=== PATIENT | male | born 1965 | race Caucasian/White ===

== ENCOUNTER 2018-06-12 08:42 | Inpatient (IN) | payer SELFPAY ==
[2018-06-12] MEDS ORDERED: FUROSEMIDE 40 MG/4 ML VIAL ONE (09:02)
[2018-06-12] MEDS ORDERED: ALBUTEROL 2.5 MG/3 ML NEB SOL ONE (09:02)
[2018-06-12] MEDS ORDERED: IPRATROPIUM BROM 0.5MG/2.5ML ONE (09:02)
[2018-06-12 09:19] LABS: Absolute Lymphocytes (CBC) 1.8 K/uL (0.7-4.9); Absolute Neutrophil 7.9 K/uL (1.8-8.0); Basophils % 0.8 % (0-1.3); Eosinophils % 4.3 % (0-4.4); Hematocrit 31.4 % (39.6-49.0); MCH 36.4 pg (27.0-35.0); MCV 104.3 fL (80-100); MPV 7.9 fL (7.6-11.3); RBC Red Blood Cell Count 3.01 M/uL (4.33-5.43)
[2018-06-12 09:36] LABS: Protime INR 1.34
[2018-06-12 09:42] LABS: Bilirubin Direct 0.9 mg/dL (0-0.2); Bilirubin Total 1.5 mg/dL (0.2-1.0); Potassium 3.8 mmol/L (3.5-5.1); Protein, Total 8.2 g/dL (6.4-8.2)
--- NOTE | 2018-06-12 10:20 | RAD REPORT ---
EXAM DESCRIPTION: RAD - Chest Single View - 06/12/2018 9:56 am CLINICAL HISTORY: CONGESTION Chest pain. COMPARISON: No comparisons FINDINGS: Portable technique limits examination quality. Linear subsegmental atelectasis is likely present in both lung bases. Small pleural effusions are kenisha pected. The heart is upper limit normal in size. No displaced fractures.
[2018-06-12 10:43] LABS: Urine Blood 1+ (NEG); Urine Glucose NEGATIVE (NEG); Urine Protein NEGATIVE (NEG); Urine Specific Gravity 1.015 (1.005-1.030); Urine pH 5.5 (5.0-7.0)
--- NOTE | 2018-06-12 11:33 | EDPHYS ---
Physician Documentation [facility] Name: Pepe Anthony Age: 53 yrs Sex: Male : 1965 Arrival Date: 06/12/2018 Time: 08:43 Bed 6 Private MD: ED Physician Ryan Vargas HPI: 06/12 12:45 This 53 yrs old Male presents to ER via EMS with complaints of Abdominal gs Distention. 12:45 Onset: The symptoms/episode began/occurred 1 month(s) ago, and became worse and became gs persistent. Associated signs and symptoms: Pertinent negatives: nausea and vomiting, fever. The symptoms are described as crampy. Modifying factors: The symptoms are alleviated by nothing, the symptoms are aggravated by nothing. Severity of pain: At its worst the pain was moderate in the emergency department the pain is unchanged. The patient has experienced similar episodes in the past, several times. 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 - Ebola Screening: : No symptoms or risks identified at this time. - Social history:: Smoking status: Patient uses tobacco products, denies chronic smoking, but will smoke occasionally. ROS: 12:45 All other systems are negative. gs Exam: 12:45 Head/Face: Normocephalic, atraumatic. ENT: Nares patent. No nasal discharge, no gs septal abnormalities noted. Tympanic membranes are normal and external auditory canals are clear. Oropharynx with no redness, swelling, or masses, exudates, or evidence of obstruction, uvula midline. Mucous membranes moist. Neck: Trachea midline, no thyromegaly or masses palpated, and no cervical lymphadenopathy. Supple, full range of motion without nuchal rigidity, or vertebral point tenderness. No Meningismus. Chest/axilla: Normal chest wall appearance and motion. Nontender with no deformity. No lesions are appreciated. 12:45 Respiratory: Lungs have equal breath sounds bilaterally, clear to auscultation and percussion. No rales, rhonchi or wheezes noted. No increased work of breathing, no retractions or nasal flaring. Back: No spinal tenderness. No costovertebral tenderness. Full range of motion. Skin: Warm, dry with normal turgor. Normal color with no rashes, no lesions, and no evidence of cellulitis. MS/ Extremity: Pulses equal, no cyanosis. Neurovascular intact. Full, normal range of motion. Neuro: Awake and alert, GCS 15, oriented to person, place, time, and situation. Cranial nerves II-XII grossly intact. Motor strength 5/5 in all extremities. Sensory grossly intact. Cerebellar exam normal. Normal gait. 12:45 Constitutional: The patient appears alert, awake, in obvious distress, severely distressed. 12:45 Eyes: Sclera: icterus, is present, very mild. 12:45 Abdomen/GI: Inspection: distension, that is severe, Palpation: mild abdominal tenderness, in all quadrants, rebound tenderness, is not appreciated. 13:01 ECG was reviewed by the Attending Physician. Vital Signs: 08:47 BP 176 / 97; Pulse 122; Resp 24; Temp 99.3(TE); Pulse Ox 93% on R/A; ph 10:00 BP 174 / 100; Pulse 121; Resp 25; Pulse Ox 96% on R/A; ss 11:00 ph 12:29 BP 142 / 87; Pulse 107; Resp 18; Pulse Ox 98% on R/A; ph 13:30 BP 129 / 78; Pulse 108; Resp 20; Temp 98.7; Pulse Ox 97% on R/A; ph 11:00 Pt not in room, taken for paracentesis ph MDM: 08:43 Patient medically screened. gs 12:45 Differential diagnosis: non-specific abd pain, pancreatitis, urinary tract infection, gs cirrhosis. Data reviewed: vital signs, nurses notes. Response to treatment: the patient's symptoms have markedly improved after treatment, and as a result, I will admit patient. 06/12 08:45 Order name: Basic Metabolic Panel; Complete Time: 10: 06/12 08:45 Order name: CBC with Diff; Complete Time: 10: 06/12 08:45 Order name: Hepatic Function; Complete Time: 10: 06/12 08:45 Order name: Lipase; Complete Time: 10: 06/12 08:45 Order name: AMMONIA; Complete Time: 12:49 06/12 08:59 Order name: PT-INR; Complete Time: 10: 06/12 08:59 Order name: Ptt, Activated; Complete Time: 10:06 06/12 09:00 Order name: Blood Culture Adult (2) 06/12 09:00 Order name: Lactate; Complete Time: 10:06 06/12 09:36 Order name: Body Fluid Culture 06/12 09:36 Order name: Fluid Cell Count,Body 06/12 09:43 Order name: Urine Dipstick--Ancillary (enter results); Complete Time: 11:06 06/12 12:50 Order name: Urine Culture 06/12 12:50 Order name: Urine Microscopic Only 06/12 08:45 Order name: IV Saline Lock; Complete Time: 09:01 06/12 08:45 Order name: Labs collected and sent; Complete Time: 09: 06/12 08:45 Order name: XRAY CXR (1 view); Complete Time: 11:06 06/12 08:49 Order name: Paracentesis Proc Guidance; Complete Time: 12:49 EDMS 06/12 09:00 Order name: EKG; Complete Time: 09:01 06/12 09:00 Order name: EKG - Nurse/Tech; Complete Time: 09:30 06/12 11:08 Order name: Abdomen ; Complete Time: 12:49 EDMS 06/12 13:46 Order name: Urine Culture EDMS EC:01 Rate is 118 beats/min. Rhythm is regular. UT interval is normal. QRS interval is gs normal. T waves are Flattened. Clinical impression: NSR w/ Non-specific ST/T Changes. Interpreted by me. Administered Medications: 09:30 Drug: Albuterol 2.5 mg Route: Inhalation; ph 09:30 Drug: AtroVENT Aerosol 0.5 mg Route: Inhalation; ph 09:30 Drug: Lasix 40 mg Route: IVP; Site: right antecubital; ph 12:51 Drug: Rocephin - (cefTRIAXone) 1 grams Route: IVPB; Infused Over: 30 mins; Site: right ph antecubital; Disposition: 06/12/18 11:32 Hospitalization ordered by Beena De La Torre for Inpatient Admission. Preliminary diagnosis are Other sepsis, Other cirrhosis of liver. - Bed requested for Telemetry/MedSurg (Inpatient). - Status is Inpatient Admission. ph - Condition is Stable. - Problem is new. - Symptoms have improved. UTI on Admission? Yes Critical care time excluding procedures: 12:45 Critical care time: Bedside Care: 10 minutes, Consultation: 10 minutes, Family gs Intervention: 10 minutes. Total time: 30 minutes Signatures: Dispatcher [employer] EDSocorro Parmar RN RN Lety Crowley RN RN Vargas, MD DEVENDRA Davis Corrections: (The following items were deleted from the chart) 11:33 11:32 Hospitalization Ordered by Beena De La Torre MD for Inpatient Admission. Preliminary diagnosis is Other sepsis. Bed requested for Telemetry/MedSurg (Inpatient). Status is Inpatient Admission. Condition is Stable. Problem is new. Symptoms have improved. UTI on Admission? Yes. 12:22 11:33 06/12/2018 11:32 Hospitalization Ordered by Beena De La Torre MD for Inpatient ss Admission. Preliminary diagnosis is Other sepsis; Other cirrhosis of liver. Bed requested for Telemetry/MedSurg (Inpatient). Status is Inpatient Admission. Condition is Stable. Problem is new. Symptoms have improved. UTI on Admission? Yes. 14:01 12:22 06/12/2018 11:32 Hospitalization Ordered by Beena De La Torre MD for Inpatient ph Admission. Preliminary diagnosis is Other sepsis; Other cirrhosis of liver. Bed requested for Telemetry/MedSurg (Inpatient). Status is Inpatient Admission. Condition is Stable. Problem is new. Symptoms have improved. UTI on Admission? Yes.
--- NOTE | 2018-06-12 11:33 | ER ---
Nurse's Notes [facility] Name: Pepe Anthony Age: 53 yrs Sex: Male : 1965 Arrival Date: 06/12/2018 Time: 08:43 Bed 6 Private MD: Diagnosis: Other sepsis;Other cirrhosis of liver Presentation: 06/12 08:44 Presenting complaint: EMS states: Pt c/o abdominal pain and distention x 6 months, also ph c/o fluid seeping from testicular area, britney wheezes heard, BP 174/112, HR 123, 95% RA, pt reports blindness is only medical hx, reports previous ETOH and drug abuse. Transition of care: patient was not received from another setting of care. Onset of symptoms was June 12, 2018. Risk Assessment: Do you want to hurt yourself or someone else? Patient reports no desire to harm self or others. Initial Sepsis Screen: Does the patient meet any 2 criteria? No. Patient's initial sepsis screen is negative. Does the patient have a suspected source of infection? No. Patient's initial sepsis screen is negative. Care prior to arrival: None. 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 - Ebola Screening: : No symptoms or risks identified at this time. - Social history:: Smoking status: Patient uses tobacco products, denies chronic smoking, but will smoke occasionally. Screenin:02 Abuse screen: Denies threats or abuse. Denies injuries from another. Nutritional ph screening: No deficits noted. Tuberculosis screening: No symptoms or risk factors identified. Fall Risk None identified. Assessment: 09:00 General: Appears in no apparent distress. uncomfortable, unkempt, Behavior is calm, ph cooperative, appropriate for age, Denies fever. Pain: Complains of pain in abdomen Quality of pain is described as pressure. Neuro: Level of Consciousness is awake, alert, obeys commands, Oriented to person, place, time, situation, Denies weakness dizziness. Cardiovascular: Reports fatigue, shortness of breath, Denies chest pain, Capillary refill < 3 seconds in bilateral fingers Patient's skin is warm and dry. Rhythm is sinus tachycardia. Respiratory: Reports shortness of breath at rest Airway is patent Respiratory effort is even, labored, Respiratory pattern is hyperventilation Breath sounds with wheezes bilaterally. GI: Abdomen is distended, noted to have ascites, Bowel sounds diminished in right upper quadrant, left upper quadrant, right lower quadrant and left lower quadrant Abd is rigid X 4 quads. Reports lower abdominal pain, upper abdominal pain, bloating, nausea, Patient currently denies diarrhea, vomiting. : Reports "fluid leaking from testicles." Denies burning with urination, inability to void. Derm: Skin has lesions on britney arms Skin is pink, warm \\T\\ dry. Musculoskeletal: Circulation, motion, and sensation intact. 10:25 Reassessment: Patient appears in no apparent distress at this time. Patient and/or ph family updated on plan of care and expected duration. Pain level reassessed. Patient is alert, oriented x 3, equal unlabored respirations, skin warm/dry/pink. Pt taken via stretcher for paracentesis. 11:25 Reassessment: Patient appears in no apparent distress at this time. Patient and/or ph family updated on plan of care and expected duration. Pain level reassessed. Patient is alert, oriented x 3, equal unlabored respirations, skin warm/dry/pink. PT returned from paracentesis, tech reported that approx 11 liters of fluid was removed, abdomen flatter in appearance w/ no distention noted, abdomen now soft w/ bowel sounds heard x 4 quadrants, pt reports that pain has decreased and SOB has improved. 12:30 Reassessment: Patient appears in no apparent distress at this time. Patient and/or ph family updated on plan of care and expected duration. Pain level reassessed. Patient is alert, oriented x 3, equal unlabored respirations, skin warm/dry/pink. Pt resting quietly, awaiting room assignment Patient states feeling better. Patient states symptoms have improved. 13:40 Reassessment: Patient appears in no apparent distress at this time. Patient and/or ph family updated on plan of care and expected duration. Pain level reassessed. Patient is alert, oriented x 3, equal unlabored respirations, skin warm/dry/pink. Report called to Radha LEOS. Vital Signs: 08:47 BP 176 / 97; Pulse 122; Resp 24; Temp 99.3(TE); Pulse Ox 93% on R/A; ph 10:00 BP 174 / 100; Pulse 121; Resp 25; Pulse Ox 96% on R/A; ss 11:00 ph 12:29 BP 142 / 87; Pulse 107; Resp 18; Pulse Ox 98% on R/A; ph 13:30 BP 129 / 78; Pulse 108; Resp 20; Temp 98.7; Pulse Ox 97% on R/A; ph 11:00 Pt not in room, taken for paracentesis ph ED Course: 08:43 Patient arrived in ED. ph 08:43 Ryan Vargas MD is Attending Physician. gs 08:47 Triage completed. ph 08:49 Arm band placed on. ph 08:52 Lety Crowley, RN is Primary Nurse. ph 09:01 Initial lab(s) drawn, by ny, sent to lab. Inserted saline lock: 20 gauge in left em1 antecubital area, using aseptic technique. Blood collected. 09:32 EKG done, by certified cytotechnologist. reviewed by Ryan Vargas MD. at1 09:45 X-ray completed. Portable x-ray completed in exam room. Patient tolerated procedure mh1 well. 09:52 XRAY CXR (1 view) In Process Unspecified. EDMS 10:42 Paracentesis Proc Guidance In Process Unspecified. EDMS 11:03 Patient has correct armband on for positive identification. Placed in gown. Bed in low ph position. Call light in reach. Side rails up X 1. monitoring engineer on. Pulse ox on. NIBP on. Warm blanket given. 11:31 Abdomen In Process Unspecified. EDMS 11:31 Beena De La Torre MD is Hospitalizing Provider. gs 13:54 No provider procedures requiring assistance completed. Patient admitted, IV remains in ph place. Administered Medications: 09:30 Drug: Albuterol 2.5 mg Route: Inhalation; ph 09:30 Drug: AtroVENT Aerosol 0.5 mg Route: Inhalation; ph 09:30 Drug: Lasix 40 mg Route: IVP; Site: right antecubital; ph 12:51 Drug: Rocephin - (cefTRIAXone) 1 grams Route: IVPB; Infused Over: 30 mins; Site: right ph antecubital; Outcome: 11:32 Decision to Hospitalize by Provider. gs 14:00 Admitted to Tele accompanied by tech, via wheelchair, room 224, with chart, Report ph called to Radha LEOS 14:00 Condition: stable 14:00 Instructed on the need for admit. 14:01 Patient left the ED. ph Signatures: Dispatcher [employer] EDMS Brenda Bustos mh1 Sourav Jesus em1 Socorro Gómez RN RN Elma Fernandez, residential framing carpenter EKG Tat1 Lety Crowley RN RN Ryan Vargas MD MD Corrections: (The following items were deleted from the chart) 14:18 12:29 Pulse 107bpm; Resp 18bpm; Pulse Ox 98% RA; ph ph 14:18 12:41 BP 129 / 78; Pulse 108bpm; Resp 20bpm; Pulse Ox 97% RA; Temp 98.7F; ph ph
[2018-06-12] MEDS: PIPER/TAZO/NS 3.375gm 3.375 GM/100 ML BAG IVPB SCH ×2 (12:00→17:00)
--- NOTE | 2018-06-12 12:02 | RAD REPORT ---
EXAM DESCRIPTION: CT - Abdomen Pelvis Wo Contrast - 06/12/2018 11:30 am CLINICAL HISTORY: Abdominal pain. Abdominal Pain COMPARISON: No comparisons TECHNIQUE: CT imaging of the abdomen and pelvis was performed without contrast. Solid organ, bowel a nd vascular assessment is limited due to lack of IV and oral contrast. All CT scans are performed using dose optimization technique as appropriate and may include automated exposure control or mA/KV adjustment according to patient size. FINDINGS: Moderate bilateral pleural effusions are present with subsegmental atelectasis in both oly g bases. Mild ascites is noted. The liver appears prominent in size. Small gallstones are present in the gallb ladder. The spleen is normal in size. Pancreas demonstrates no ductal dilatation or mass. Both adrena l glands are normal.Stones are present in kidneys bilaterally, in the superior left kidney calyx alina uring 9 mm with a small adjacent air bubble seen. In the inferior left renal calyx measuring 7 mm and in the superior right renal calyx measuring 8 mm. No significant hydronephrosis. No bowel obstruction, free air or abscess. The majority of the colon demonstrates mural thickening, p articularly notable in the right colon. The appendix is normal. The osseous structures are within normal limits.Mild anasarca. IMPRESSION: Fluid retention pattern is seen with mild anasarca, moderate bilateral pleural effusions and mild ascites. Hepatomegaly is seen without discrete mass identified. Liver assessment is limited due to lack of con trast. Cholelithiasis. Bilateral nephrolithiasis. Colonic wall thickening is present as detailed which could indicate colitis for portal colopathy. A limited non-contrast examination was performed as detailed.
[2018-06-12] MEDS ORDERED: CEFTRIAXONE/SWI 1gm 1 GM/10 ML SYR ONE (12:08)
--- NOTE | 2018-06-12 12:45 | RAD REPORT ---
EXAM DESCRIPTION: US - Paracentesis Proc Guidance - 06/12/2018 10:48 am CLINICAL HISTORY: Liver disease with ascites FINDINGS: The risks, benefits and alternatives to the procedure were explained to the patient and in formed consent obtained. The skin and subcutaneous tissues were anesthetized with Lidocaine. Under sonographic guidance an 8 F rench catheter was placed into the right lower quadrant. 11 liters of yellow fluid was removed and se nt to the lab. The patient experienced no immediate complication. IMPRESSION: Paracentesis
[2018-06-12 13:27] LABS: Appearance CLEAR (CLEAR); Body Fluid Source PERITONEAL; Color of fluid Yellow (COLORLESS)
[2018-06-12 13:28] LABS: Body Fluid WBC 474 /mm^3
[2018-06-12] MEDS ORDERED: ONDANSETRON 4 MG/2 ML VIAL IV PRN (13:46)
[2018-06-12 14:44] LABS: Urine Blood 2+ (NEG); Urine Glucose NEGATIVE (NEG); Urine Protein NEGATIVE (NEG); Urine Specific Gravity 1.015 (1.005-1.030); Urine pH 5.5 (5.0-7.0)
--- NOTE | 2018-06-12 15:14 | P.HP ---
Certification for Inpatient Patient admitted to: Inpatient With expected LOS: >2 Midnights Patient will require the following post-hospital care: None Practitioner: I am a practitioner with admitting privileges, knowledge of patient current condition, hospital course, and medical plan of care. Services: Services provided to patient in accordance with Admission requirements found in Title 42 Section 412.3 of the Code of Federal Regulations Patient History Date of Service: 06/12/18 Primary Care Provider: OOT Reason for admission: SOB History of Present Illness: 53 y/o M with No significatn PMHX who is homeless presenting to the ED with SOB. SOB has been going on for 1 to 2 weeks but has been getting progressively worse. Pt states he has also noted scrotal Swelling that is getting worse and thus he came to the ER for further w.u, He also c/p of abd pain that is generalized and sharp in nature. Denies any fever, chills, N/V or diarrhea. No Chest pain either. Has not had any Doctor and states does not take any medication. He does drink and quit 10 days ago. He is also a smoker and smokes a pack a day. In the ER patient was found to have Ascites and Liver Cirrhosis. Pt had Paracentesis done and then referred for admission for further care. Allergies No Known Allergies Allergy (Verified 06/12/18 13:38) Home medications list reviewed: Yes Home Medications: NK [No Home Meds] 06/12/18 - Past Medical/Surgical History Has patient received pneumonia vaccine in the past: No Diabetic: No -: Liver Cirrhosis -: Alcoholic Cirrhpsis -: Ascites Past Surgical History: Reviewed- Non-Contributory - Family History Family History: Reviewed- Non-Contributory - Social History Smoking Status: Current every day smoker Counseled patient to stop smoking for: more than 10 minutes Smoking therapy provided: Yes Patient receptive to therapy: No Alcohol use: Yes CD- Drugs: No Caffeine use: No Place of Residence: Homeless Review of Systems 10-point ROS is otherwise unremarkable Physical Examination - Vital Signs Temperature: 98.7 F Blood Pressure: 129/78 Pulse: 108 Respirations: 20 - Physical Exam General: Alert, In no apparent distress HEENT: Atraumatic, PERRLA, Mucous membr. moist/pink, EOMI, Sclerae nonicteric Neck: Supple, 2+ carotid pulse no bruit, No LAD, Without JVD or thyroid abnormality Respiratory: Clear to auscultation bilaterally, Normal air movement Cardiovascular: Regular rate/rhythm, Normal S1 S2 Gastrointestinal: Normal bowel sounds, Ascites, Tenderness Musculoskeletal: No tenderness Integumentary: No rashes Neurological: Normal gait, Normal speech, Normal strength at 5/5 x4 extr, Normal tone, Normal affect Lymphatics: No axilla or inguinal lymphadenopathy - Studies Laboratory Data (last 24 hrs) 06/12/18 09:15: PT 15.8 H, INR 1.34, APTT 33.6 06/12/18 08:55: WBC 11.3 H, Hgb 11.0 L, Hct 31.4 L, Plt Count 194 06/12/18 08:55: Sodium 134 L, Potassium 3.8, BUN 15, Creatinine 1.30, Glucose 164 H, Total Bilirubin 1.5 H, AST 45 H, ALT 26, Alkaline Phosphatase 117, Lipase 402 H Assessment and Plan - Plan Assessment and Plan: 1. Acute Respiratory distress -2.2 to Ascites -S.p tap with 11L removed -Now resolved 2. Ascites -S/p Removal 11L -Culture Sent 3. Liver Cirrhosis -2.2 to alcohol 4. Alcohol abuse -Quit 10 days ago -PRN Alcohol WD meds 5. Ansarca -2.2 to Liver Cirrhosis 6. Plueral Effusion Small -Will monitor closely 7. Possible UTI -IV zosyn Dispo: Admit to Med surg for further workup and care Discharge Plan: Home Plan to discharge in: 48 Hours - Advance Directives Does patient have a Living Will: No Does patient have a Durable POA for Healthcare: No - Code Status/Comfort Care Code Status Assessed: Yes Critical Care: No
[2018-06-12] MEDS: ALBUTEROL 2.5 MG/3 ML NEB SOL NEB SCH (20:25)
[2018-06-12] MEDS: IPRATROPIUM BROM 0.5MG/2.5ML NEB SCH (20:25)
[2018-06-13] MEDS: PIPER/TAZO/NS 3.375gm 3.375 GM/100 ML BAG IVPB SCH ×2 (00:38→09:57)
[2018-06-13] MEDS: IPRATROPIUM BROM 0.5MG/2.5ML NEB SCH ×4 (01:09→20:05)
[2018-06-13] MEDS: ALBUTEROL 2.5 MG/3 ML NEB SOL NEB SCH ×2 (01:09→08:00)
[2018-06-13 05:21] LABS: Absolute Lymphocytes (CBC) 1.8 K/uL (0.7-4.9); Absolute Monocytes 1.1 K/uL (0.1-1.3); Absolute Neutrophil 8.3 K/uL (1.8-8.0); Basophils % 0.7 % (0-1.3); Eosinophils % 2.6 % (0-4.4); Hematocrit 31.2 % (39.6-49.0); Lymphocytes % 15.7 % (15.3-44.8); MCH 36.5 pg (27.0-35.0); MCV 103.9 fL (80-100); MPV 7.9 fL (7.6-11.3); Monocytes % 9.3 % (3.3-12.3)
[2018-06-13 05:25] LABS: Protime INR 1.4
[2018-06-13 05:43] LABS: Albumin 1.7 g/dL (3.4-5.0); Bilirubin Total 1.5 mg/dL (0.2-1.0); Potassium 3.4 mmol/L (3.5-5.1); Protein, Total 6.7 g/dL (6.4-8.2)
[2018-06-13] MEDS ORDERED: POTASSIUM 25 MEQ EFFERV TAB PO ONE (06:19)
--- NOTE | 2018-06-13 11:00 | EKG ---
Test Date: 2018-06-12 Test Time: 09:10:03 Trauma Coordinator: DAMARIS MEASUREMENT RESULTS: Intervals: Rate: 118 KS: 138 QRSD: 64 QT: 320 QTc: 448 [place]: P: 52 KS: 138 QRS: 34 T: 47 INTERPRETIVE STATEMENTS: Sinus tachycardia Otherwise normal ECG No previous ECG available for comparison Electronically Signed On 06-13-18 10:56:03 CDT by Tejinder Prakash
--- NOTE | 2018-06-13 11:45 | P.PN ---
Subjective Date of Service: 06/13/18 Primary Care Provider: YAW Chief Complaint: Hepatic cirrhosis Subjective: Improving (Patient is doing well no new complaints status post large volume paracentesis he has had abdominal swelling for a month lower extremity edema for 2 weeks no other complaints) Review of Systems General: Weakness Cardiovascular: Edema Gastrointestinal: Nausea, Distention Physical Examination - Vital Signs Temperature: 97.9 F Blood Pressure: 114/64 Pulse: 111 Respirations: 20 Pulse Ox (%): 95 - Physical Exam General: Alert, Oriented x3 Respiratory: Clear to auscultation bilaterally Cardiovascular: Normal S1 S2, Edema (3+ edema) Gastrointestinal: Normal bowel sounds, Distended, Ascites Assessment & Plan - Problems (Diagnosis) (1) Cirrhosis of liver Current Visit: Yes Status: Acute Plan: Patient is 53 years of age admitted with cirrhosis of the liver then alcoholic liver function is mildly abnormal he also has significant scrotal edema patient is homeless start on spironolactone thiamine hemodynamically stable Dc antibiotics possible discharge tomorrow Qualifiers: Hepatic cirrhosis type: alcoholic cirrhosis
[2018-06-13] MEDS ORDERED: ALBUTEROL 2.5 MG/3 ML NEB SOL NEB PRN (11:46)
[2018-06-13] MEDS: SPIRONOLACTONE 25 MG TABLET PO SCH ×2 (12:44→20:09)
[2018-06-13] MEDS: THIAMINE HCL 100 MG TABLET PO SCH (12:44)
[2018-06-13] MEDS: TRAMADOL HCL 50 MG TAB PO PRN (12:45)
[2018-06-14] MEDS: TRAMADOL HCL 50 MG TAB PO PRN ×2 (01:34→08:59)
[2018-06-14] MEDS: IPRATROPIUM BROM 0.5MG/2.5ML NEB SCH ×2 (01:51→08:04)
[2018-06-14 05:53] LABS: Absolute Lymphocytes (CBC) 2.6 K/uL (0.7-4.9); Absolute Monocytes 1.1 K/uL (0.1-1.3); Absolute Neutrophil 7.3 K/uL (1.8-8.0); Basophils % 0.9 % (0-1.3); Eosinophils % 5.2 % (0-4.4); Lymphocytes % 22.4 % (15.3-44.8); MCH 36.1 pg (27.0-35.0); MPV 7.8 fL (7.6-11.3); Monocytes % 9.4 % (3.3-12.3); RBC Red Blood Cell Count 3.18 M/uL (4.33-5.43)
[2018-06-14 05:57] LABS: Protime INR 1.38
[2018-06-14 06:04] LABS: Albumin 1.7 g/dL (3.4-5.0); Phosphorus 3.6 mg/dL (2.5-4.9); Potassium 4.2 mmol/L (3.5-5.1); Protein, Total 6.9 g/dL (6.4-8.2)
[2018-06-14] MEDS: SPIRONOLACTONE 25 MG TABLET PO SCH (08:58)
[2018-06-14] MEDS: THIAMINE HCL 100 MG TABLET PO SCH (08:58)
[2018-06-14] MEDS ORDERED: FUROSEMIDE 20 MG TABLET PO SCH (09:00)
--- NOTE | 2018-06-14 10:54 | P.DS ---
Admission Date: 06/12/18 Discharge Date: 06/14/18 Primary Care Provider: YAW Disposition: ROUTINE DISCHARGE Discharge Condition: FAIR Reason for Admission: Hepatic cirrhosis - Problems (1) Cirrhosis of liver Current Visit: Yes Status: Acute Qualifiers: Hepatic cirrhosis type: alcoholic cirrhosis Ascites presence: with ascites Qualified Code(s): K70.31 - Alcoholic cirrhosis of liver with ascites Brief History of Present Illness: PATIENT IS 53 YEARS OF AGE ADMITTED WITH ABDOMINAL DISTENSION AND LOWER EXTREMITY EDEMA Hospital Course: He was admitted to the hospital and and underwent a paracentesis at the time of discharge ambulating eating well the on spironolactone he quit drinking 14 days ago sats satisfactory statin was a little elevated Mr isolated from the urine was treated with doxycycline at the time of discharge alert oriented responsive cooperative vital signs all stable planing of abdominal distension and even had declined Vital Signs/Physical Exam: Temp Pulse Resp BP Pulse Ox 97.7 F 109 H 20 144/91 H 96 06/14/18 08:00 06/14/18 08:00 06/14/18 08:00 06/14/18 08:00 06/14/18 08:00 Laboratory Data at Discharge: WBC 11.7 K/uL (4.3-10.9) H 06/14/18 05:27 Hgb 11.5 g/dL (13.6-17.9) L 06/14/18 05:27 Hct 33.0 % (39.6-49.0) L 06/14/18 05:27 Plt Count 196 K/uL (152-406) 06/14/18 05:27 PT 16.3 SECONDS (9.5-12.5) H 06/14/18 05:27 INR 1.38 06/14/18 05:27 APTT 33.1 SECONDS (24.3-36.9) 06/14/18 05:27 Sodium 136 mmol/L (136-145) 06/14/18 05:27 Potassium 4.2 mmol/L (3.5-5.1) 06/14/18 05:27 BUN 16 mg/dL (7-18) 06/14/18 05:27 Creatinine 1.40 mg/dL (0.55-1.3) H 06/14/18 05:27 Glucose 119 mg/dL (74-106) H 06/14/18 05:27 Phosphorus 3.6 mg/dL (2.5-4.9) 06/14/18 05:27 Magnesium 2.0 mg/dL (1.8-2.4) 06/14/18 05:27 Total Bilirubin 2.0 mg/dL (0.2-1.0) H 06/14/18 05:27 AST 35 U/L (15-37) 06/14/18 05:27 ALT 22 U/L (12-78) 06/14/18 05:27 Alkaline Phosphatase 70 U/L (45-117) 06/14/18 05:27 Lipase 402 U/L (73-393) H 06/12/18 08:55 Home Medications: Doxycycline Hyclate 100 mg PO BID #14 capsule 06/14/18 Furosemide [Lasix] 20 mg PO DAILY #30 tablet 06/14/18 Spironolact/Hydrochlorothiazid [Spironolactone-Hctz 25-25 Tab] 1 each PO DAILY # 30 tablet 06/14/18 Thiamine HCl [Vitamin B-1*] 100 mg PO DAILY #30 tablet 06/14/18 New Medications: Doxycycline Hyclate 100 mg PO BID #14 capsule Furosemide [Lasix] 20 mg PO DAILY #30 tablet Spironolact/Hydrochlorothiazid [Spironolactone-Hctz 25-25 Tab] 1 each PO DAILY # 30 tablet Thiamine HCl [Vitamin B-1*] 100 mg PO DAILY #30 tablet Diet: Low sodium Activity: Ad rajni Followup: Faizan Elizondo MD [ACTIVE - CAN ADMIT] -
--- NOTE | 2018-06-15 08:11 | EKG ---
Test Date: 2018-06-14 Test Time: 03:51:22 Copy Technician: RT Solis MEASUREMENT RESULTS: Intervals: Rate: 105 CO: 132 QRSD: 68 QT: 358 QTc: 473 [place]: P: CO: 132 QRS: 48 T: 53 INTERPRETIVE STATEMENTS: Sinus tachycardia Cannot rule out Anterior infarct, age undetermined Abnormal ECG Compared to ECG 06/12/2018 09:10:03 Myocardial infarct finding now present Electronically Signed On 06-15-18 08:10:43 CDT by Yousuf Sosa
== END 2018-06-14 15:32 | disposition home or self-care (01) | DRG 433 ==
LOC: ER 08:42 → ERHOLD 11:38 → 2ND 13:48
PROVIDERS: ADMIT Family Medicine; ATTEND Family Medicine
PROC: 0W9G3ZX Drainage of Peritoneal Cavity, Percutaneous Approach, Diagnostic (ICD-10-PCS; principal; 2018-06-12)
DX: K70.31 Alcoholic cirrhosis of liver with ascites (principal); J90 Pleural effusion, not elsewhere classified; N39.0 Urinary tract infection, site not specified; R06.03 Acute respiratory distress; Z59.0 Homelessness; F17.210 Nicotine dependence, cigarettes, uncomplicated; F10.10 Alcohol abuse, uncomplicated; R60.1 Generalized edema; B95.62 Methicillin resistant Staphylococcus aureus infection as the cause of diseases classified elsewhere
CPT/HCPCS: 36415; 49083; 71045; 74176; 80048; 80053; 80076; 81003; 82140; 82962; 83605; 83690; 83735; 84100; 85025; 85610; 85730; 87040; 87070; 87077; 87086; 87088; 87186; 89050; 93005; 94640; 96374; 96375; 99285; J0696; J2543

== ENCOUNTER 2018-06-25 14:23 | Emergency (ER) | payer SELFPAY ==
--- NOTE | 2018-06-25 16:52 | EDPHYS ---
Physician Documentation [facility] Name: Pepe Anthony Age: 53 yrs Sex: Male : 1965 Arrival Date: 06/25/2018 Time: 14:25 Bed 4 Private MD: Faizan Elizondo ED Physician Adis Alvarado HPI: 06/25 16:42 This 53 yrs old Male presents to ER via Wheelchair with complaints of Doctor rn sent here for paracentesis. 16:42 The patient presents with abdominal distention that is diffuse. Onset: The rn symptoms/episode began/occurred at an unknown time. The symptoms do not radiate. Associated signs and symptoms: none. Pertinent negatives: nausea and vomiting, blood in stools, chest pain, constipation, diarrhea, fever, vomiting, vomiting blood. Modifying factors: The symptoms are alleviated by nothing, the symptoms are aggravated by nothing. Severity of pain: At its worst the pain was moderate in the emergency department the pain is unchanged. The patient has experienced a previous episode. Sent here by Dr Elizondo for therapeutic paracentesis, patient recently discharged from hospital, had paracentesis done for first time 1 week ago, + abd swelling again with mild sob because of swelling. NO fever, doing much better since leaving hospital, seen at clinic today. . Historical: - Allergies: 14:32 No Known Allergies; aa5 - Home Meds: 14:44 spironolacton-hydrochlorothiaz 25-25 mg Oral tab 1 tab once daily [Active]; Lasix 20 mg bp Oral tab 1 tab 2 times per day [Active]; doxycycline hyclate 100 mg Oral cap [Active]; - PMHx: 14:32 BLIND; aa5 14:44 Cirrhosis; Hypertension; bp - PSHx: 14:32 None; aa5 - Immunization history:: Adult Immunizations unknown. - Social history:: Smoking status: Patient uses tobacco products, smokes one-half pack cigarettes per day. - Ebola Screening: : No symptoms or risks identified at this time. - Family history:: not pertinent. - Hospitalizations: : The patient was recently seen at [facility]. ROS: 16:42 Constitutional: Negative for fever, chills, and weight loss, Eyes: Negative for injury, rn pain, redness, and discharge, Neck: Negative for injury, pain, and swelling, Cardiovascular: Negative for chest pain, palpitations, and edema, Respiratory: + mild sob Abdomen/GI: + abd distension MS/Extremity: Negative for injury and deformity, Skin: Negative for injury, rash, and discoloration, Neuro: Negative for headache, weakness, numbness, tingling, and seizure. Exam: 16:42 Constitutional: Thin male with large abdomen, disheveled. Head/Face: Normocephalic, rn atraumatic. Eyes: mild scleral icterus ENT: MMM, stridor Neck: Trachea midline, no thyromegaly or masses palpated, and no cervical lymphadenopathy. Supple, full range of motion without nuchal rigidity, or vertebral point tenderness. No Meningismus. Cardiovascular: tachycardic, regular, no murmur Respiratory: faint exp wheezing bilaterally, no respiratory distress, speaking full sentences Abdomen/GI: firm distended abdomen, no skin changes, no peritoneal signs, no rebound/guarding MS/ Extremity: Pulses equal, no cyanosis. Neurovascular intact. Full, normal range of motion. Equal circumference. 2+ pitting lower ext edema bilaterally Neuro: Awake and alert, GCS 15, oriented to person, place, time, and situation. Cranial nerves II-XII grossly intact. Motor strength 5/5 in all extremities. Sensory grossly intact. Vital Signs: 14:33 BP 133 / 84; Pulse 113; Resp 18 S; Temp 98.0(TE); Pulse Ox 96% on R/A; Weight 90.72 kg aa5 (R); Height 5 ft. 11 in. (180.34 cm) (R); Pain 0/10; 14:38 BP 151 / 98; Pulse 111; Resp 18; Pulse Ox 96% on R/A; hj 15:34 BP 146 / 89; Pulse 103; Resp 20 S; Pulse Ox 97% on R/A; aa5 16:00 BP 155 / 94; Pulse 102; Resp 20 S; Pulse Ox 96% on R/A; aa5 16:12 BP 155 / 94; Pulse 100; Resp 18; Pulse Ox 99% on R/A; hj 16:24 BP 145 / 87; Pulse 103; Resp 16 S; Pulse Ox 98% on R/A; aa5 16:40 BP 147 / 97; Pulse 101; Resp 14 S; Pulse Ox 98% on R/A; aa5 17:01 BP 120 / 98; Pulse 101; Resp 18; Pulse Ox 99% on R/A; hj 17:30 BP 140 / 85; Pulse 98; Resp 16 S; Temp 97.9(TE); Pulse Ox 98% on R/A; aa5 14:33 Body Mass Index 27.89 (90.72 kg, 180.34 cm) aa5 Procedures: 16:42 Paracentesis: The risks and benefits of the procedure were discussed with the patient rn or guardian in detail, aseptic technique was employed throughout the procedure, the catheter was placed in the right lower quadrant, appoximately 4 liters of fluid was removed, the fluid was serous, the patient tolerated the procedure well, the patient did not experience any apparent complications. MDM: 14:36 Patient medically screened. rn 16:42 Differential diagnosis: ascites. Data reviewed: vital signs, nurses notes, and as a rn result, I will discharge patient. Counseling: I had a detailed discussion with the patient and/or guardian regarding: the historical points, exam findings, and any diagnostic results supporting the discharge/admit diagnosis, the need for outpatient follow up, to return to the emergency department if symptoms worsen or persist or if there are any questions or concerns that arise at home. Response to treatment: the patient's symptoms have markedly improved after treatment, and as a result, I will discharge patient. Special discussion: I discussed with the patient/guardian in detail that at this point there is no indication for admission to the hospital. It is understood, however, that if the symptoms persist or worsen the patient needs to return immediately for re-evaluation. Based on the history and exam findings, there is no indication for further emergent testing or inpatient evaluation. I discussed with the patient/guardian the need to see the shank stitcher for further evaluation of the symptoms. ED course: Spoke with radiology, unable to do paracentesis until tomorrow, but no reason for emergent admission otherwise, spoke again with Dr. Elizondo, who made him appt with GI in [place] on 06/30/18 at 3 pm. Unsure if patient will make it that far so after discussing risks/benefits, I performed paracentesis using ultrasound guidance and sterile technique, removed 4L, feels better, improved vitals, will dc home with GI f/u. . Administered Medications: No medications were administered Disposition: 10/04/18 16:51 Discharged to Home. Impression: Ascites. - Condition is Stable. - Discharge Instructions: Ascites, Ascites Drainage Catheter Placement, Care After. - Prescriptions for Spironolactone 25 mg Oral Tablet - take 1 tablet by ORAL route every 8 hours; 30 tablet. - Medication Reconciliation Form, Thank You Letter, Antibiotic Education, Prescription Opioid Use form. - Follow up: Faizan Elizondo MD; When: As needed; Reason: Recheck today's complaints, Re-evaluation by your physician. - Problem is an ongoing problem. - Symptoms have improved. Signatures: Adis Alvarado MD MD rn Calderon, Audri RN RN aa5 Duke Rodriguez RN RN hj Ilya Luis RN RN bp Corrections: (The following items were deleted from the chart) 17:42 16:51 06/25/2018 16:51 Discharged to Home. Impression: Ascites. Condition is Stable. hj Forms are Medication Reconciliation Form, Thank You Letter, Antibiotic Education, Prescription Opioid Use. Follow up: Faizan Elizondo; When: As needed; Reason: Recheck today's complaints, Re-evaluation by your physician. Problem is an ongoing problem. Symptoms have improved. rn
--- NOTE | 2018-06-25 16:52 | ER ---
Nurse's Notes [facility] Name: Pepe Anthony Age: 53 yrs Sex: Male : 1965 Arrival Date: 06/25/2018 Time: 14:25 Bed 4 Private MD: Faizan Elizondo Diagnosis: Ascites Presentation: 06/25 14:30 Presenting complaint: Patient states: "I went for a follow-up with a doctor today and aa5 he sent me over here because he thinks I need another my belly drained again". Pt reports mild SOB. Transition of care: patient was not received from another setting of care. Onset of symptoms was June 25, 2018. Risk Assessment: Do you want to hurt yourself or someone else? Patient reports no desire to harm self or others. Initial Sepsis Screen: Does the patient meet any 2 criteria? No. Patient's initial sepsis screen is negative. Does the patient have a suspected source of infection? No. Patient's initial sepsis screen is negative. Care prior to arrival: None. 14:30 Method Of Arrival: Wheelchair aa5 14:30 Acuity: JERE 3 aa5 Triage Assessment: 14:39 General: Appears in no apparent distress. uncomfortable, Behavior is calm, cooperative, hj appropriate for age. Pain: Denies pain. Historical: - Allergies: 14:32 No Known Allergies; aa5 - Home Meds: 14:44 spironolacton-hydrochlorothiaz 25-25 mg Oral tab 1 tab once daily [Active]; Lasix 20 mg bp Oral tab 1 tab 2 times per day [Active]; doxycycline hyclate 100 mg Oral cap [Active]; - PMHx: 14:32 BLIND; aa5 14:44 Cirrhosis; Hypertension; bp - PSHx: 14:32 None; aa5 - Immunization history:: Adult Immunizations unknown. - Social history:: Smoking status: Patient uses tobacco products, smokes one-half pack cigarettes per day. - Ebola Screening: : No symptoms or risks identified at this time. - Family history:: not pertinent. - Hospitalizations: : The patient was recently seen at [facility]. Screenin:39 Abuse screen: Denies threats or abuse. Denies injuries from another. Nutritional hj screening: No deficits noted. Tuberculosis screening: No symptoms or risk factors identified. Fall Risk None identified. Assessment: 14:40 General: Appears in no apparent distress. comfortable, unkempt, Behavior is bp cooperative, appropriate for age, anxious. Pain: Denies pain. Neuro: Level of Consciousness is awake, alert, obeys commands, Oriented to person, place, situation, Appropriate for age. Cardiovascular: Rhythm is sinus tachycardia. Respiratory: Airway is patent Respiratory effort is even, unlabored, Respiratory pattern is regular, symmetrical. GI: Abdomen is distended, noted to have ascites, Abd is rigid X 4 quads. : No signs and/or symptoms were reported regarding the genitourinary system. EENT: No deficits noted. Derm: Wound noted Other: SCATTERED WOUNDS IN VARIOUS STAGES OF HEALING. Musculoskeletal: Circulation, motion, and sensation intact. Range of motion: intact in all extremities. 15:30 Reassessment: Consent for paracentesis obtained and signed by pt. . aa5 15:45 Reassessment: provider in room with CAROL Vasquez for paracentesis. hj 16:45 Reassessment: Paracentesis completed, pt tolerated well. Pt reports symptoms have aa5 improved. . 17:00 Reassessment: CAROL Vasquez to call friend for a ride or arrange transpo service;. hj 17:26 Reassessment: family member to seed cone picker pt; on the way; pt states "i feel better". hj 17:40 Reassessment: Patient is alert, oriented x 3, equal unlabored respirations, skin aa5 warm/dry/pink. Pt's friend here to seed cone picker patient . Vital Signs: 14:33 BP 133 / 84; Pulse 113; Resp 18 S; Temp 98.0(TE); Pulse Ox 96% on R/A; Weight 90.72 kg aa5 (R); Height 5 ft. 11 in. (180.34 cm) (R); Pain 0/10; 14:38 BP 151 / 98; Pulse 111; Resp 18; Pulse Ox 96% on R/A; hj 15:34 BP 146 / 89; Pulse 103; Resp 20 S; Pulse Ox 97% on R/A; aa5 16:00 BP 155 / 94; Pulse 102; Resp 20 S; Pulse Ox 96% on R/A; aa5 16:12 BP 155 / 94; Pulse 100; Resp 18; Pulse Ox 99% on R/A; hj 16:24 BP 145 / 87; Pulse 103; Resp 16 S; Pulse Ox 98% on R/A; aa5 16:40 BP 147 / 97; Pulse 101; Resp 14 S; Pulse Ox 98% on R/A; aa5 17:01 BP 120 / 98; Pulse 101; Resp 18; Pulse Ox 99% on R/A; hj 17:30 BP 140 / 85; Pulse 98; Resp 16 S; Temp 97.9(TE); Pulse Ox 98% on R/A; aa5 14:33 Body Mass Index 27.89 (90.72 kg, 180.34 cm) aa5 ED Course: 14:25 Patient arrived in ED. mr 14:25 Faizan Elizondo MD is Private Physician. mr 14:32 Triage completed. aa5 14:32 Arm band placed on. aa5 14:34 Duke Rodriguez, DERIC is Primary Nurse. hj 14:36 Adis Alvarado MD is Attending Physician. rn 14:40 Patient has correct armband on for positive identification. Placed in gown. Bed in low hj position. Call light in reach. Side rails up X 1. 14:45 Ilya Luis, DERIC is Primary Nurse. bp 16:[address] Dr[address] Alvarado. Sterile field maintained. Drained 4,000 ml from aa5 1545 to 1645, clear yellow fluid noted. Pt tolerated well. 16:51 Faizan Elizondo MD is Referral Physician. rn 17:42 Patient did not have IV access during this emergency room visit. hj Administered Medications: No medications were administered Outcome: 16:51 Discharge ordered by . rn 17:42 Discharged to home via wheelchair. hj 17:42 Condition: stable 17:42 Discharge instructions given to patient, Instructed on discharge instructions, follow up and referral plans. medication usage, Demonstrated understanding of instructions, follow-up care, medications, Prescriptions given X 1. 17:42 Patient left the ED. Signatures: Paulette Watson mr Adis Alvarado MD MD rn Calderon, Audri, RN RN [facility] Duke Rodriguez RN RN hj Peltier, Brian, RN RN bp Corrections: (The following items were deleted from the chart) 16:28 16:26 Pulse 103bpm; Resp 18bpm; Pulse Ox 99% RA; hj hj 16:57 16:26 BP 145 / 87; Pulse 103bpm; Resp 18bpm; Pulse Ox 99% RA; hj aa5 17:49 17:40 Reassessment: Patient is alert, oriented x 3, equal unlabored respirations, skin aa5 warm/dry/pink. aa5
== END 2018-06-25 17:42 | disposition home or self-care (01) ==
LOC: ER 14:23
PROC: 0W9G3ZZ Drainage of Peritoneal Cavity, Percutaneous Approach (ICD-10-PCS; principal; 2018-06-25)
DX: R18.8 Other ascites (principal); F17.210 Nicotine dependence, cigarettes, uncomplicated
CPT/HCPCS: 99284

== ENCOUNTER 2018-08-25 11:42 | Observation (INO) | payer SELFPAY ==
[2018-08-25] MEDS ORDERED: LEVALBUTEROL 1.25 MG/3 ML NEB ONE (12:14)
[2018-08-25] MEDS ORDERED: METHYLPREDNISOLONE 125 MG INJ ONE (12:14)
[2018-08-25 12:34] LABS: Absolute Lymphocytes (CBC) 1.3 K/uL (0.7-4.9); Absolute Neutrophil 7.2 K/uL (1.8-8.0); Basophils % 1.3 % (0-1.3); Hematocrit 32.3 % (39.6-49.0); MCH 35.2 pg (27.0-35.0); MCV 97.8 fL (80-100); MPV 7.6 fL (7.6-11.3); Monocytes % 10.4 % (3.3-12.3)
[2018-08-25 12:53] LABS: Protime INR 1.25
[2018-08-25 12:55] LABS: ALT/SGPT 23 U/L (12-78); AST/SGOT 41 U/L (15-37); Albumin 2.2 g/dL (3.4-5.0); Alkaline Phosphatase 127 U/L (45-117); BUN Blood Urea Nitrogen 7 mg/dL (7-18); Bicarbonate 25 mmol/L (21-32); Bilirubin Direct 0.7 mg/dL (0-0.2); Bilirubin Total 1.4 mg/dL (0.2-1.0); Glucose Level 169 mg/dL (74-106); Magnesium 1.9 mg/dL (1.8-2.4); NT PRO-BNP 234 pg/mL (<125); Potassium 3.9 mmol/L (3.5-5.1); Protein, Total 8.2 g/dL (6.4-8.2); Sodium Level 132 mmol/L (136-145); Troponin (Emerg Dept Use Only) < 0.02 ng/mL (0.0-0.045)
--- NOTE | 2018-08-25 13:19 | RAD REPORT ---
EXAM DESCRIPTION: Nathanielt Single View08/25/2018 1:09 pm CLINICAL HISTORY: Shortness of breath COMPARISON: May 20162017 FINDINGS: Small to moderate bilateral pleural effusions are suspected with bibasilar atelectasis/in filtrate. Upper lobes are clear. Heart is normal size
--- NOTE | 2018-08-25 13:37 | EDPHYS ---
Physician Documentation [facility] Name: Pepe Anthony Age: 53 yrs Sex: Male : 1965 Arrival Date: 08/25/2018 Time: 11:50 Bed 16 Private MD: ED Physician Rohit Mclean HPI: 08/25 13:29 This 53 yrs old Male presents to ER via EMS with complaints of Breathing jr8 Difficulty. 13:29 The patient has shortness of breath at rest. Onset: The symptoms/episode began/occurred jr8 gradually, 2 day(s) ago, and became worse and became persistent. Duration: The symptoms are continuous. The patient's shortness of breath is aggravated by talking, walking. Associated signs and symptoms: Pertinent positives: abdominal swelling . Severity of symptoms: At their worst the symptoms were moderate in the emergency department the symptoms are unchanged. The patient has experienced similar episodes in the past, a few times. The patient has not recently seen a physician. history of liver disease and ascites. Complains of shortness of breath that is getting worse. Abdomen is swelling again . Historical: - Allergies: 11:54 No Known Allergies; jl7 - Home Meds: 11:54 doxycycline hyclate 100 mg Oral cap [Active]; Lasix 20 mg Oral tab 1 tab 2 times per jl7 day [Active]; spironolacton-hydrochlorothiaz 25-25 mg Oral tab 1 tab once daily [Active]; - PMHx: 11:54 BLIND; Cirrhosis; Hypertension; jl7 - Immunization history:: Adult Immunizations not up to date. - Social history:: Smoking status: Patient uses tobacco products, smokes one-half pack cigarettes per day, Patient uses alcohol, on a daily basis. 1.5 24 oz beers per day. - Ebola Screening: : No symptoms or risks identified at this time. ROS: 13:29 Eyes: Negative for injury, pain, redness, and discharge, ENT: Negative for injury, jr8 pain, and discharge, Neck: Negative for injury, pain, and swelling, Cardiovascular: Negative for chest pain, palpitations, and edema, Back: Negative for injury and pain, MS/Extremity: Negative for injury and deformity, Skin: Negative for injury, rash, and discoloration, Neuro: Negative for headache, weakness, numbness, tingling, and seizure. 13:29 Respiratory: Positive for dyspnea on exertion, orthopnea, shortness of breath, wheezing. 13:29 Abdomen/GI: Positive for abdominal distension, Negative for abdominal pain, nausea, vomiting, and diarrhea. Exam: 13:29 Eyes: Pupils equal round and reactive to light, extra-ocular motions intact. Lids and jr8 lashes normal. Conjunctiva and sclera are non-icteric and not injected. Cornea within normal limits. Periorbital areas with no swelling, redness, or edema. ENT: Nares patent. No nasal discharge, no septal abnormalities noted. Tympanic membranes are normal and external auditory canals are clear. Oropharynx with no redness, swelling, or masses, exudates, or evidence of obstruction, uvula midline. Mucous membranes moist. Neck: Trachea midline, no thyromegaly or masses palpated, and no cervical lymphadenopathy. Supple, full range of motion without nuchal rigidity, or vertebral point tenderness. No Meningismus. Cardiovascular: Sinus Tachycardia with a normal rhythm with a normal S1 and S2. No gallops, murmurs, or rubs. Normal PMI, no JVD. No pulse deficits. Back: No spinal tenderness. No costovertebral tenderness. Full range of motion. Skin: Warm, dry with normal turgor. Normal color with no rashes, no lesions, and no evidence of cellulitis. MS/ Extremity: Pulses equal, no cyanosis. Neurovascular intact. Full, normal range of motion. Neuro: Awake and alert, GCS 15, oriented to person, place, time, and situation. Cranial nerves II-XII grossly intact. Motor strength 5/5 in all extremities. Sensory grossly intact. Cerebellar exam normal. Normal gait. 13:29 Respiratory: mild respiratory distress is noted, Respirations: labored breathing, tachypnea, Breath sounds: wheezing: expiratory that is mild, is heard diffusely. 13:29 Abdomen/GI: Inspection: distension, that is moderate, Bowel sounds: active, Palpation: nontender, rebound tenderness, is not appreciated, voluntary guarding, is not appreciated, involuntary guarding, is not appreciated, Tympanic . Vital Signs: 11:54 BP 167 / 95; Pulse 113; Resp 28 S; Temp 98.1(O); Pulse Ox 93% on R/A; Pain 0/10; jl7 12:15 BP 163 / 94; Pulse 113; Resp 26 S; Pulse Ox 94% on R/A; jl7 13:00 BP 152 / 93; Pulse 112; Resp 22 S; Pulse Ox 93% on R/A; jl7 13:30 BP 162 / 108; Pulse 112; Resp 25 S; Pulse Ox 92% on R/A; jl7 13:55 BP 153 / 97; Pulse 110; Resp 22; Pulse Ox 97% on BiPAP; jl7 16:26 BP 138 / 93; Pulse 105; Resp 22 S; Pulse Ox 95% on R/A; jl7 MDM: 11:53 Patient medically screened. jennifer 13:29 Data reviewed: vital signs, nurses notes, lab test result(s), EKG, radiologic studies, [facility] plain films. Data interpreted: Pulse oximetry: on room air is 90 %. Interpretation: borderline. Counseling: I had a detailed discussion with the patient and/or guardian regarding: the historical points, exam findings, and any diagnostic results supporting the discharge/admit diagnosis, lab results, radiology results, the need for further work-up and treatment in the hospital. Physician consultation: Beena De La Torre MD was called at 13:33, was contacted at 13:33, regarding admission, to the telemetry unit. consult, patient's condition, and will see patient. 13:39 ED course: Dr. De La Torre Requests obs for admission . [facility] 08/25 12:00 Order name: Basic Metabolic Panel; Complete Time: 13:03 08/25 12:00 Order name: CBC with Diff; Complete Time: 12:48 08/25 12:00 Order name: LFT's; Complete Time: 13:03 [facility] 08/25 12:00 Order name: Magnesium; Complete Time: 13:03 [facility] 08/25 12:00 Order name: NT PRO-BNP; Complete Time: 13:03 [facility] 08/25 12:00 Order name: PT-INR; Complete Time: 13:22 [facility] 08/25 12:00 Order name: Troponin (emerg Dept Use Only); Complete Time: 13:03 08/25 12:00 Order name: XRAY Chest (1 view); Complete Time: 13:22 [facility] 08/25 12:00 Order name: AMMONIA; Complete Time: 13:03 [facility] 08/25 12:02 Order name: Blood Culture Adult (2) [facility] 08/25 13:45 Order name: Paracentesis Proc Guidance [facility] 08/25 13:50 Order name: BIPAP [facility] 08/25 12:00 Order name: EKG; Complete Time: 12: jr8 08/25 12:00 Order name: Cardiac monitoring; Complete Time: 12: jr8 08/25 12:00 Order name: EKG - Nurse/Tech; Complete Time: 12: jr8 08/25 12:00 Order name: IV Saline Lock; Complete Time: 12: jr8 08/25 12:00 Order name: Labs collected and sent; Complete Time: 12: jr8 08/25 12:00 Order name: O2 Per Protocol; Complete Time: : jr8 08/25 12:00 Order name: O2 Sat Monitoring; Complete Time: : jr8 Administered Medications: 12:11 Drug: Xopenex (3) 1.25 mg Route: Inhalation; jl7 13:00 Follow up: Response: No adverse reaction jl7 12:11 Drug: SOLU-Medrol 125 mg Route: IVP; Site: left antecubital; jl7 12:30 Follow up: Response: No adverse reaction jl7 Disposition: 08/25/18 13:36 Hospitalization ordered by Beena De La Torre for Observation. Preliminary diagnosis are Pleural effusion in conditions classified elsewhere, Ascites, Shortness of breath. - Bed requested for Telemetry/MedSurg (observation). - Status is Observation. jl7 - Condition is Fair. - Problem is new. - Symptoms have improved. UTI on Admission? No Addendum: 08/27/2018 06:30 Co-signature as Attending Physician, Rohit Mclean MD I agree with the assessment and c bob plan of care. Signatures: Dispatcher [employer] [facility] Rohit Mclean MD MD cha Williams, Irene, RN RN Boone Ruiz PA PA jr8 Luis Manuel Romeo RN RN jl7 Corrections: (The following items were deleted from the chart) 08/25 13:39 13:36 Hospitalization Ordered by Beena De La Torre MD for Inpatient Admission. Preliminary jr8 diagnosis is Pleural effusion in conditions classified elsewhere; Ascites; Shortness of breath. Bed requested for Telemetry/MedSurg (Inpatient). Status is Inpatient Admission. Condition is Fair. Problem is new. Symptoms have improved. UTI on Admission? No. jr8 15:50 13:39 08/25/2018 13:36 Hospitalization Ordered by Beena De La Torre MD for Observation. iw Preliminary diagnosis is Pleural effusion in conditions classified elsewhere; Ascites; Shortness of breath. Bed requested for Telemetry/MedSurg (observation). Status is Observation. Condition is Fair. Problem is new. Symptoms have improved. UTI on Admission? No. jr8 16:36 15:50 08/25/2018 13:36 Hospitalization Ordered by Beena De La Torre MD for Observation. jl7 Preliminary diagnosis is Pleural effusion in conditions classified elsewhere; Ascites; Shortness of breath. Bed requested for Telemetry/MedSurg (observation). Status is Observation. Condition is Fair. Problem is new. Symptoms have improved. UTI on Admission? No. iw
--- NOTE | 2018-08-25 13:37 | ER ---
Nurse's Notes [facility] Name: Pepe Anthony Age: 53 yrs Sex: Male : 1965 Arrival Date: 08/25/2018 Time: 11:50 Bed 16 Private MD: Diagnosis: Pleural effusion in conditions classified elsewhere;Ascites;Shortness of breath Presentation: 08/25 11:51 Presenting complaint: EMS states: Called out for difficulty breathing x 2 months, jl7 [facility] [place]. Pt was here about a month ago and had several liters drained off abdomen. Transition of care: patient was not received from another setting of care. Onset of symptoms was July 23, 2018. Risk Assessment: Do you want to hurt yourself or someone else? Patient reports no desire to harm self or others. Initial Sepsis Screen: Does the patient meet any 2 criteria? No. Patient's initial sepsis screen is negative. Does the patient have a suspected source of infection? No. Patient's initial sepsis screen is negative. Care prior to arrival: None. 11:51 Method Of Arrival: EMS: [place] [facility] 11:51 Acuity: JERE 3 jl7 Triage Assessment: 11:54 General: Appears distressed, uncomfortable, Behavior is calm, cooperative, appropriate jl for age. Pain: Denies pain. EENT: No signs and/or symptoms were reported regarding the EENT system. Neuro: Level of Consciousness is awake, alert, obeys commands, Oriented to person, place, time, situation. Cardiovascular: Heart tones S1 S2 present Patient's skin is warm and dry. Respiratory: Reports shortness of breath at rest since 2 months ago Airway is patent Respiratory effort is even, labored, Respiratory pattern is symmetrical, tachypnea Breath sounds with wheezes bilaterally. Onset: The symptoms/episode began/occurred 2 months ago, the patient has moderate shortness of breath. GI: Abdomen is round distended, noted to have ascites, Bowel sounds hypoactive in right upper quadrant, left upper quadrant, right lower quadrant and left lower quadrant. : No signs and/or symptoms were reported regarding the genitourinary system. Denies burning with urination. Derm: Skin is dry, Skin is jaundiced, Skin temperature is warm. Historical: - Allergies: 11:54 No Known Allergies; jl7 - Home Meds: 11:54 doxycycline hyclate 100 mg Oral cap [Active]; Lasix 20 mg Oral tab 1 tab 2 times per jl7 day [Active]; spironolacton-hydrochlorothiaz 25-25 mg Oral tab 1 tab once daily [Active]; - PMHx: 11:54 BLIND; Cirrhosis; Hypertension; jl7 - Immunization history:: Adult Immunizations not up to date. - Social history:: Smoking status: Patient uses tobacco products, smokes one-half pack cigarettes per day, Patient uses alcohol, on a daily basis. 1.5 24 oz beers per day. - Ebola Screening: : No symptoms or risks identified at this time. Screenin:00 Abuse screen: Denies threats or abuse. Denies injuries from another. Nutritional jl7 screening: No deficits noted. Tuberculosis screening: No symptoms or risk factors identified. Fall Risk Secondary diagnosis (15 points) Blindness. IV access (20 points). Assessment: 12:00 General: See triage assessment. jl7 12:00 Cardiovascular: Rhythm is sinus tachycardia. jl7 13:00 Reassessment: No changes from previously documented assessment. Patient and/or family jl7 updated on plan of care and expected duration. Pain level reassessed. Patient is alert, oriented x 3, equal unlabored respirations, skin warm/dry/pink. Pt appears to continue to be working to breathe, ERP notified. 13:49 Reassessment: Patient and/or family updated on plan of care and expected duration. Pain jl7 level reassessed. Patient is alert, oriented x 3, equal unlabored respirations, skin warm/dry/pink. Patient states symptoms have improved. 13:52 Reassessment: Respiratory at bedside with BiPap at this time. jl7 Vital Signs: 11:54 BP 167 / 95; Pulse 113; Resp 28 S; Temp 98.1(O); Pulse Ox 93% on R/A; Pain 0/10; jl7 12:15 BP 163 / 94; Pulse 113; Resp 26 S; Pulse Ox 94% on R/A; jl7 13:00 BP 152 / 93; Pulse 112; Resp 22 S; Pulse Ox 93% on R/A; jl7 13:30 BP 162 / 108; Pulse 112; Resp 25 S; Pulse Ox 92% on R/A; jl7 13:55 BP 153 / 97; Pulse 110; Resp 22; Pulse Ox 97% on BiPAP; jl7 16:26 BP 138 / 93; Pulse 105; Resp 22 S; Pulse Ox 95% on R/A; jl7 ED Course: 11:50 Patient arrived in ED. jl7 11:53 Triage completed. jl7 11:53 Rohit Mclean MD is Attending Physician. jennifer 11:54 Arm band placed on right wrist. jl7 11:59 [facility] Rose [facility] jr8 11:59 EKG done, by cable splicing technician. reviewed by Rohit Mclean MD. vh 12:15 Inserted saline lock: 20 gauge in left antecubital area, using aseptic technique. Blood 5 collected. 12:15 Initial lab(s) drawn, by la, sent to lab. First set of blood cultures drawn by la, [facility] Second set of blood cultures drawn by la. 12:16 Luis Manuel Romeo, DERIC is Primary Nurse. 7 12:17 Blood Culture Adult (2) Sent. 5 12:17 AMMONIA Sent. 5 12:17 Basic Metabolic Panel Sent. 5 12:18 Patient has correct armband on for positive identification. Placed in gown. Bed in low mh5 position. Call light in reach. Side rails up X2. Warm blanket given. pediatric allergist on. Pulse ox on. NIBP on. 12:18 CBC with Diff Sent. 5 12:18 LFT's Sent. mh5 12:18 Magnesium Sent. 5 12:18 NT PRO-BNP Sent. 5 12:18 PT-INR Sent. 5 12:18 Troponin (emerg Dept Use Only) Sent. 5 13:10 XRAY Chest (1 view) In Process Unspecified. EDMS 13:34 Beena De La Torre MD is Hospitalizing Provider. jr8 16:26 No provider procedures requiring assistance completed. Patient admitted, IV remains in jl7 place. intact, No redness/swelling at site. Administered Medications: 12:11 Drug: Xopenex (3) 1.25 mg Route: Inhalation; jl7 13:00 Follow up: Response: No adverse reaction jl7 12:11 Drug: SOLU-Medrol 125 mg Route: IVP; Site: left antecubital; jl7 12:30 Follow up: Response: No adverse reaction [facility] Outcome: 13:36 Decision to Hospitalize by Provider. jr8 16:26 Admitted to Tele accompanied by tech, via stretcher, room 216, with chart, Report jl7 called to DERIC Hernandez 16:26 Condition: stable 16:26 Discharge instructions given to patient, Instructed on the need for admit, Demonstrated understanding of instructions. 16:36 Patient left the ED. jl7 Signatures: Dispatcher [employer] Rohit Perea MD MD cha Roszak, Josh, PA PA jr8 [place] [id number] Luis Manuel Romeo, RN RN jl7
[2018-08-25] MEDS ORDERED: ACETAMINOPHEN 500 MG TAB PO PRN (16:49)
[2018-08-25] MEDS ORDERED: ONDANSETRON 4 MG/2 ML VIAL IV PRN (16:49)
--- NOTE | 2018-08-25 17:09 | RAD REPORT ---
EXAM DESCRIPTION: US - Paracentesis Proc Guidance - 08/25/2018 2:57 pm CLINICAL HISTORY: Liver disease with ascites FINDINGS: The risks, benefits and alternatives to the procedure were explained to the patient and in formed consent obtained. The skin and subcutaneous tissues were anesthetized with Lidocaine. Under sonographic guidance an 8 F rench catheter was placed into the right lower quadrant. 8 liters of yellow fluid was removed and sen t to the lab. The patient experienced no immediate complication. IMPRESSION: Paracentesis
[2018-08-25] MEDS ORDERED: INFLUENZA VACCINE (for 3y+) 0.5 ML DOSE IMVAC ONE (21:00)
--- NOTE | 2018-08-25 22:41 | EKG ---
Test Date: 2018-08-25 Test Time: 11:59:09 Microfilm Operator: DAMARIS MEASUREMENT RESULTS: Intervals: Rate: 111 MT: 118 QRSD: 58 QT: 340 QTc: 462 [place]: P: 26 MT: 118 QRS: 51 T: 86 INTERPRETIVE STATEMENTS: Sinus tachycardia Otherwise normal ECG Compared to ECG 06/14/2018 03:51:22 Myocardial infarct finding no longer present Electronically Signed On 08-25-18 22:40:33 NITRILES LAB TECHNICIAN by Yousuf Sosa
[2018-08-26 02:38] LABS: Urine Appearance CLEAR; Urine Bilirubin NEGATIVE (NEG); Urine Blood TRACE (NEG); Urine Color YELLOW; Urine Glucose NEGATIVE (NEG); Urine Protein NEGATIVE (NEG); Urine Specific Gravity <=1.005 (1.005-1.030); Urine Urobilinogen 0.2 mg/dL (0.2-1.0)
[2018-08-26 02:43] LABS: Urine Microscopic Reflex ORDER UMIC
[2018-08-26 03:00] LABS: Urine Bacteria <20 /HPF (NONE SEEN); Urine Culture Reflex Order NOT NEEDED; Urine RBC <5 /HPF (NONE SEEN)
[2018-08-26 05:21] LABS: Absolute Lymphocytes (CBC) 0.7 K/uL (0.7-4.9); Absolute Monocytes 0.4 K/uL (0.1-1.3); Absolute Neutrophil 8.9 K/uL (1.8-8.0); Basophils % 0.1 % (0-1.3); Eosinophils % 0.1 % (0-4.4); Hematocrit 30.5 % (39.6-49.0); Lymphocytes % 6.7 % (15.3-44.8); MCH 34.5 pg (27.0-35.0); MCV 98.1 fL (80-100); MPV 7.9 fL (7.6-11.3); Monocytes % 3.8 % (3.3-12.3); RBC Red Blood Cell Count 3.11 M/uL (4.33-5.43)
[2018-08-26 05:39] LABS: Albumin 1.8 g/dL (3.4-5.0); Bilirubin Total 1.1 mg/dL (0.2-1.0); Potassium 4.3 mmol/L (3.5-5.1); Protein, Total 7.3 g/dL (6.4-8.2)
[2018-08-26 06:38] LABS: Blood Morphology Comment NOT SEEN (NOT SEEN); Platelet Estimate ADEQ
--- NOTE | 2018-08-26 08:08 | RAD REPORT ---
EXAM DESCRIPTION: US - Abdomen Exam Limited - 08/26/2018 7:53 am CLINICAL HISTORY: Abdominal pain, ascites, assessment of post paracentesis residual ascites COMPARISON: Ultrasound-guided paracentesis August 25, CT examination June 12, 2018 FINDINGS: Limited sonography was performed to evaluate residual ascites. Moderate volume of ascites remains. This is most pronounced in the right lower quadrant. Partially imaged liver shows nodular capsular contour. A focal liver lesion is not seen. Gallstones a re present in a contracted gallbladder. IMPRESSION: Moderate residual volume of ascites present, primarily right lower quadrant.
--- NOTE | 2018-08-26 08:15 | P.HP ---
Certification for Inpatient Patient admitted to: Observation With expected LOS: <2 Midnights Practitioner: I am a practitioner with admitting privileges, knowledge of patient current condition, hospital course, and medical plan of care. Services: Services provided to patient in accordance with Admission requirements found in Title 42 Section 412.3 of the Code of Federal Regulations Patient History Date of Service: 08/25/18 Reason for admission: Shortness of breath/liver failure/ascites History of Present Illness: Patient is a 53-year-old gentleman who came into the hospital with shortness of breath. Patient had a large pleural effusion. Patient also has ascites. Patient has a longstanding history of alcohol abuse and developed cirrhosis. Patient does not follow with a ice cream truck driver regularly. Patient came into the hospital because he had abdominal distention which was causing his shortness of breath. Patient was admitted for paracentesis. Patient has had 8L of fluid removed. Patient has hypoalbuminemia. Patient also has elevated ammonia level. Patient's abdomen still seems quite distended. Will check renal function and patient may need additional fluid removed prior to discharging. Patient's long-term prognosis is poor because he does not have the resources for follow up appointments. Because of patient's numerous comorbidities patient probably need more than 48 hr of hospital stay to stabilize his current medical condition. He has a bilateral pleural effusion which is probably going to worsen unless his hypoalbuminemia improves. Patient may need an echocardiogram to further assess his cardiac status as he may have dilated cardiomyopathy which may be hurting his volume status situation. Allergies No Known Allergies Allergy (Verified 06/12/18 13:38) Home Medications: Doxycycline Hyclate 100 mg PO BID #14 capsule 06/14/18 Furosemide [Lasix] 20 mg PO DAILY #30 tablet 06/14/18 Spironolact/Hydrochlorothiazid [Spironolactone-Hctz 25-25 Tab] 1 each PO DAILY # 30 tablet 06/14/18 Thiamine HCl [Vitamin B-1*] 100 mg PO DAILY #30 tablet 06/14/18 - Past Medical/Surgical History Diabetic: No -: Liver Cirrhosis -: Alcoholic Cirrhosis -: Ascites Past Surgical History: Patient denies surgical history -: Paracentesis - Family History Mother History Unknown: Yes Father Notes: back problems - Social History Smoking Status: Current every day smoker Alcohol use: Yes CD- Drugs: No Caffeine use: No Place of Residence: Home Review of Systems 10-point ROS is otherwise unremarkable Physical Examination - Vital Signs Temperature: 97.5 F Blood Pressure: 133/72 Pulse: 109 Respirations: 20 Pulse Ox (%): 91 - Physical Exam General: Alert, In no apparent distress, Oriented x3 HEENT: Atraumatic, PERRLA, Mucous membr. moist/pink, EOMI, Sclerae nonicteric Neck: Supple, 2+ carotid pulse no bruit, No LAD, JVD distended Respiratory: Crackles/rales Cardiovascular: Regular rate/rhythm, Normal S1 S2 Gastrointestinal: Normal bowel sounds, Soft and benign, Non-distended, No rebound, No guarding, Ascites Musculoskeletal: No tenderness Integumentary: No rashes Neurological: Normal speech, Normal tone, Normal affect, Abnormal gait, Abnormal strength Lymphatics: No axilla or inguinal lymphadenopathy - Studies Laboratory Data (last 24 hrs) 08/25/18 12:00: PT 14.8 H, INR 1.25 08/25/18 12:00: WBC 9.9, Hgb 11.6 L, Hct 32.3 L, Plt Count 221 08/25/18 12:00: Sodium 132 L, Potassium 3.9, BUN 7, Creatinine 1.10, Glucose 169 H, Magnesium 1.9, Total Bilirubin 1.4 H, AST 41 H, ALT 23, Alkaline Phosphatase 127 H Assessment & Plan - Problems (Diagnosis) (1) Alcohol abuse Current Visit: Yes Status: Acute (2) Acute respiratory distress Onset Date: 06/17/18 Current Visit: No Status: Acute (3) Anasarca Onset Date: 06/17/18 Current Visit: No Status: Acute (4) Ascites Onset Date: 06/17/18 Current Visit: No Status: Acute (5) Cirrhosis of liver Onset Date: 06/17/18 Current Visit: No Status: Acute Qualifiers: Hepatic cirrhosis type: alcoholic cirrhosis Ascites presence: with ascites Qualified Code(s): K70.31 - Alcoholic cirrhosis of liver with ascites (6) Pleural effusion Onset Date: 06/17/18 Current Visit: No Status: Acute (7) Hypoalbuminemia Current Visit: Yes Status: Acute - Plan Plan: 1. Monitor renal function after 8L of fluid removed; continue with Lasix and Aldactone 2. Repeat ultrasound of the abdomen as patient still distended quite significant 3. Monitor labs closely 4. Patient with tachyarrhythmia. Heart rates elevated. May benefit from a low- dose beta-teena 5. Increase protein in diet; however, this may make ammonia level go up. Patient needs to continue with lactulose. 6. Continue with PPI 7. Patient may need ultrasound to assess for dilated cardiomyopathy 8. GI and DVT prophylaxis Discharge Plan: Home Plan to discharge in: Greater than 2 days - Advance Directives Does patient have a Living Will: No Does patient have a Durable POA for Healthcare: No - Code Status/Comfort Care Code Status Assessed: Yes Code Status: Full Code Critical Care: No Time Spent Managing PTS Care (In Minutes): 50
--- NOTE | 2018-08-26 16:43 | P.SSS ---
Patient History Date of Service: 08/26/18 Reason for admission: Shortness of breath/liver failure/ascites History of Present Illness: Patient is a 53-year-old gentleman who came into the hospital with shortness of breath. Patient had a large pleural effusion. Patient also has ascites. Patient has a longstanding history of alcohol abuse and developed cirrhosis. Patient does not follow with a waste cotton cleaner regularly. Patient came into the hospital because he had abdominal distention which was causing his shortness of breath. Patient was admitted for paracentesis. Patient has had 8L of fluid removed. Patient has hypoalbuminemia. Patient also has elevated ammonia level. Patient's abdomen still seems quite distended. Will check renal function and patient may need additional fluid removed prior to discharging. Patient's long-term prognosis is poor because he does not have the resources for follow up appointments. Because of patient's numerous comorbidities patient probably need more than 48 hr of hospital stay to stabilize his current medical condition. He has a bilateral pleural effusion which is probably going to worsen unless his hypoalbuminemia improves. Patient may need an echocardiogram to further assess his cardiac status as he may have dilated cardiomyopathy which may be hurting his volume status situation. Allergies No Known Allergies Allergy (Verified 06/12/18 13:38) Home Medications: Doxycycline Hyclate 100 mg PO BID #14 capsule 08/26/18 Furosemide [Lasix] 20 mg PO DAILY #30 tablet 08/26/18 Spironolact/Hydrochlorothiazid [Spironolactone-Hctz 25-25 Tab] 1 each PO DAILY # 30 tablet 08/26/18 Thiamine HCl [Vitamin B-1*] 100 mg PO DAILY #30 tablet 08/26/18 - Past Medical/Surgical History Diabetic: No -: Liver Cirrhosis -: Alcoholic Cirrhosis -: Ascites -: Paracentesis - Family History Mother History Unknown: Yes Father Notes: back problems - Social History Smoking Status: Current every day smoker Alcohol use: Yes CD- Drugs: No Caffeine use: No Place of Residence: Home Review of Systems 10-point ROS is otherwise unremarkable Physical Examination - Vital Signs Temperature: 97.5 F Blood Pressure: 133/72 Pulse: 109 Respirations: 20 Pulse Ox (%): 91 - Physical Exam General: Alert, In no apparent distress HEENT: Atraumatic, PERRLA, Mucous membr. moist/pink, EOMI, Sclerae nonicteric Neck: Supple, 2+ carotid pulse no bruit, No LAD, Without JVD or thyroid abnormality Respiratory: Clear to auscultation bilaterally, Normal air movement Cardiovascular: Regular rate/rhythm, Normal S1 S2 Gastrointestinal: Normal bowel sounds, No tenderness, Ascites Musculoskeletal: No tenderness Integumentary: No rashes Neurological: Normal gait, Normal speech, Normal strength at 5/5 x4 extr, Normal tone, Normal affect Lymphatics: No axilla or inguinal lymphadenopathy Treatment Summary: Overall during the hospital stay patient remained stable The patient was initially admitted to the hospital for dyspnea most likely secondary to pleural effusion most likely secondary to volume overload secondary to his face IVs. Patient has been having a past medical history of liver cirrhosis causing him to have ascitic fluid buildup which then causes him to have volume load up and shortness of breath. Patient had therapeutic paracentesis done here in the hospital with 8 L of fluid that was removed. Patient had marked improvement in his symptoms and was discharged home under stable condition. Patient is homeless and has limited resources and does not have it in the funding to refill his prescription thus compliance with medication is very poor. Patient has poor prognosis with his current living situation along with disease process. Patient was educated on available resources along with the medical center pharmacy home. Patient stated that he will be applying for the available research this when he gets time. Patient then was discharged home under stable condition with refills of all his prescription that he has been prescribed by his primary care doctor. - Disposition Disposition: ROUTINE DISCHARGE Condition: GOOD Patient Discharge Instructions: Please f.u with PCP in 1 to 2 week post discharge. No new medication Diet: Regular Activity: Ad rajni
== END 2018-08-26 14:50 | disposition home or self-care (01) ==
LOC: ER 11:42 → ERHOLD 14:06 → 2ND 16:18
PROVIDERS: ADMIT Family Medicine; ATTEND Hospitalist
PROC: 0W9G3ZX Drainage of Peritoneal Cavity, Percutaneous Approach, Diagnostic (ICD-10-PCS; principal; 2018-08-25)
PROC: BW40ZZZ Ultrasonography of Abdomen (ICD-10-PCS; 2018-08-25)
DX: K70.31 Alcoholic cirrhosis of liver with ascites (principal); J90 Pleural effusion, not elsewhere classified; Z59.0 Homelessness; F17.210 Nicotine dependence, cigarettes, uncomplicated; F10.10 Alcohol abuse, uncomplicated; E88.09 Other disorders of plasma-protein metabolism, not elsewhere classified; Z23 Encounter for immunization
CPT/HCPCS: 36415; 49083; 71045; 76705; 80048; 80053; 80076; 81003; 81015; 82140; 83735; 83880; 84484; 85025; 85610; 87040; 93005; 94660; 94760; 96374; 99285; G0008; G0378; J2930; Q2035

== ENCOUNTER 2018-11-10 09:54 | Inpatient (IN) | payer OTHER, SELFPAY ==
[2018-11-10 10:47] LABS: Absolute Lymphocytes (CBC) 1.6 K/uL (0.7-4.9); Absolute Monocytes 0.6 K/uL (0.1-1.3); Absolute Neutrophil 4.6 K/uL (1.8-8.0); Basophils % 1.3 % (0-1.3); Eosinophils % 2.6 % (0-4.4); Hematocrit 32.3 % (39.6-49.0); Lymphocytes % 22.3 % (15.3-44.8); MPV 7.1 fL (7.6-11.3); Monocytes % 8.5 % (3.3-12.3); Protime INR 1.24; RBC Red Blood Cell Count 3.36 M/uL (4.33-5.43)
[2018-11-10 11:00] LABS: ALT/SGPT 25 U/L (12-78); AST/SGOT 54 U/L (15-37); Albumin 2.2 g/dL (3.4-5.0); Alkaline Phosphatase 100 U/L (45-117); BUN Blood Urea Nitrogen 16 mg/dL (7-18); Bicarbonate 27 mmol/L (21-32); Bilirubin Direct 0.7 mg/dL (0-0.2); Bilirubin Total 1.7 mg/dL (0.2-1.0); Glucose Level 162 mg/dL (74-106); Lipase 112 U/L (73-393); Potassium 3.4 mmol/L (3.5-5.1); Sodium Level 139 mmol/L (136-145); Troponin (Emerg Dept Use Only) < 0.02 ng/mL (0.0-0.045)
[2018-11-10 11:29] LABS: Urine Blood 1+ (NEG); Urine Glucose NEGATIVE (NEG); Urine Protein NEGATIVE (NEG)
--- NOTE | 2018-11-10 11:39 | RAD REPORT ---
EXAM DESCRIPTION: CT - Chest Abd Pelvis Wo Con - 11/10/2018 11:26 am CLINICAL HISTORY: Shortness of breath/abdominal pain and abdominal distention COMPARISON: CT May 2019 TECHNIQUE: Computed axial tomography of the chest, abdomen and pelvis was obtained. Oral contrast wa s given. IV contrast was not requested. All CT scans are performed using dose optimization technique as appropriate and may include automated exposure control or mA/KV adjustment according to patient size. FINDINGS: The evaluation of mediastinum, clyde, vessels and solid organs is limited secondary to the lack of IV contrast administration Very large right pleural effusion with right basilar atelectasis Small to moderate left pleural effusion 1 Massive ascites Cirrhotic liver. Mild splenomegaly Pancreas and adrenals appear unremarkable. Nonobstructing bilateral renal calculi No evidence of diverticulitis Cholelithiasis without evidence cholecystitis IMPRESSION: Very large right pleural effusion Cirrhosis with massive ascites
--- NOTE | 2018-11-10 11:59 | EDPHYS ---
Physician Documentation [facility] Name: Pepe Anthony Age: 53 yrs Sex: Male : 1965 Arrival Date: 11/10/2018 Time: 09:56 Bed 20 Private MD: ED Physician Rohit Mclean HPI: 11/10 10:00 This 53 yrs old Male presents to ER via EMS with complaints of Abd Pain > 50 jmm y/o, Shortness Of Breath. 10:00 The patient presents with abdominal distention. Onset: The symptoms/episode jmm began/occurred gradually, 1 month(s) ago. Associated signs and symptoms: Pertinent positives: SOB. This is a 53 year old male with a history of cirrhosis that presents to the ED with complaints of shortness of breath and abdominal distension worsening over the past month. Patient states having similar symptoms this past August. Patient does not receive outpatient care for this. . Historical: - Allergies: 10:06 No Known Allergies; tw2 - Home Meds: 10:06 spironolacton-hydrochlorothiaz 25-25 mg Oral tab 1 tab once daily (Last Dose: tw2 09/22/2018) [Active]; Lasix 20 mg Oral tab 1 tab 2 times per day (Last Dose: 09/22/2018) [Active]; - PMHx: 10:06 BLIND; Cirrhosis; Hypertension; tw2 - Immunization history:: Adult Immunizations unknown. - Social history:: Smoking status: Patient uses tobacco products, cigars. - Ebola Screening: : Patient denies travel to an Ebola-affected area in the 21 days before illness onset. ROS: 10:00 Constitutional: Negative for fever, chills, and weight loss. jmm 10:00 Respiratory: Positive for shortness of breath. 10:00 Abdomen/GI: Positive for abdominal distension. 10:00 All other systems are negative. Exam: 10:00 Constitutional: This is a well developed, well nourished patient who is awake, alert, jmm and in no acute distress. Head/Face: atraumatic. Eyes: EOMI, no conjunctival erythema appreciated ENT: Moist Mucus Membranes Neck: Trachea midline, Supple Chest/axilla: Normal chest wall appearance and motion. 10:00 Cardiovascular: Rate: normal, Rhythm: regular. 10:00 Respiratory: the patient does not display signs of respiratory distress, Respirations: normal, Breath sounds: are clear throughout. 10:00 Abdomen/GI: Inspection: distension, that is severe. 10:00 Skin: Appearance: Color: normal in color. 10:00 Neuro: Orientation: is normal, Mentation: is normal, Memory: is normal. 10:00 Psych: Behavior/mood is pleasant, cooperative. Vital Signs: 10:01 BP 143 / 95; Pulse 111; Resp 22; Temp 97.9(O); Pulse Ox 88% on R/A; Pain 5/10; tw2 10:50 BP 149 / 98; Pulse 113; Resp 23; Pulse Ox 98% on R/A; tw2 11:43 BP 141 / 89; Pulse 111; Resp 20; Pulse Ox 98% on 2 lpm NC; tw2 12:51 BP 142 / 97; Pulse 107; Resp 21; Pulse Ox 97% on 2 lpm NC; tw2 13:36 BP 152 / 97; Pulse 112; Resp 20; Pulse Ox 97% on 2 lpm NC; tw2 10:01 pt placed on 2 L nc at this time, will continue to monitor tw2 MDM: 10:06 Patient medically screened. [facility] 11:56 Data reviewed: vital signs, nurses notes. Data interpreted: Pulse oximetry: on 2L(s) jmm per nasal canula, is 98 %. Interpretation: normal. Counseling: I had a detailed discussion with the patient and/or guardian regarding: the historical points, exam findings, and any diagnostic results supporting the discharge/admit diagnosis, lab results, radiology results, the need for further work-up and treatment in the hospital. ED course: I discussed the patient with Dr. Guzman whom accepted admission. . 11/10 09:59 Order name: Basic Metabolic Panel; Complete Time: 11: [facility] 11/10 09:59 Order name: CBC with Diff; Complete Time: 10: [facility] 11/10 09:59 Order name: Creatinine for Radiology; Complete Time: 10: [facility] 11/10 09:59 Order name: Hepatic Function; Complete Time: 11: [facility] 11/10 09:59 Order name: Lipase; Complete Time: 11: [facility] 11/10 09:59 Order name: Troponin (emerg Dept Use Only); Complete Time: 11: [facility] 11/10 09:59 Order name: PT-INR; Complete Time: 10:56 [facility] 11/10 10:06 Order name: Chest Single View XRAY [facility] 11/10 10:13 Order name: AMMONIA [facility] 11/10 10:13 Order name: Ammonia; Complete Time: 10:48 [facility] 11/10 10:49 Order name: Urine Dipstick--Ancillary (enter results); Complete Time: 11:30 bd 11/10 11:26 Order name: Chest Abd Pelvis Wo Con; Complete Time: 11:49 [facility] 11/10 12:41 Order name: RAD; Complete Time: 15:26 [facility] 11/10 09:59 Order name: IV Saline Lock; Complete Time: 10:08 [facility] 11/10 09:59 Order name: Labs collected and sent; Complete Time: 10:25 [facility] Administered Medications: No medications were administered Disposition: 16:41 Co-signature as Attending Physician, Rohit Mclean MD I agree with the assessment and the [facility] plan of care. Disposition: 11/10/18 11:58 Hospitalization ordered by Luis Guzman for Observation. Preliminary diagnosis are Ascites, Pleural effusion, not elsewhere classified. - Bed requested for Telemetry/MedSurg (observation). - Status is Observation. tw2 - Condition is Stable. - Problem is an acute exacerbation. - Symptoms have improved. UTI on Admission? No Signatures: Dispatcher [facility] Gisela Esparza, RN Rohit Mckee MD MD cha Mickail, Joel, PA PA [facility] Linda Burgess, RN RN tw2 Corrections: (The following items were deleted from the chart) 11:26 11:13 Stone Protocol+CT.RAD.BRZ ordered. [facility] 12:46 11:58 Hospitalization Ordered by Luis Guzman DO for Observation. Preliminary diagnosis is Ascites; Pleural effusion, not elsewhere classified. Bed requested for Telemetry/MedSurg (observation). Status is Observation. Condition is Stable. Problem is an acute exacerbation. Symptoms have improved. UTI on Admission? No. [facility] 13:38 12:46 11/10/2018 11:58 Hospitalization Ordered by Luis Guzman DO for Observation. tw2 Preliminary diagnosis is Ascites; Pleural effusion, not elsewhere classified. Bed requested for Telemetry/MedSurg (observation). Status is Observation. Condition is Stable. Problem is an acute exacerbation. Symptoms have improved. UTI on Admission? No. dw
--- NOTE | 2018-11-10 11:59 | ER ---
Nurse's Notes [facility] Name: Pepe Anthony Age: 53 yrs Sex: Male : 1965 Arrival Date: 11/10/2018 Time: 09:56 Bed 20 Private MD: Diagnosis: Ascites;Pleural effusion, not elsewhere classified Presentation: 11/10 09:51 Presenting complaint: EMS states: pt says since Friday he has noticed abdomen tw2 distending more, he says he has been out of his medicine since 22 of September, he has hx of cirrhosis, htn, and is legally blind, nkda, we gave a\T\ax1 for wheezing, we gave 0.4 mg Nitro SL, and 80 mg Lasix. Transition of care: patient was not received from another setting of care. Onset of symptoms was November 10, 2018. Risk Assessment: Do you want to hurt yourself or someone else? Patient reports no desire to harm self or others. Initial Sepsis Screen: Does the patient meet any 2 criteria? No. Patient's initial sepsis screen is negative. Does the patient have a suspected source of infection? No. Patient's initial sepsis screen is negative. Care prior to arrival: Medication(s) given: Albuterol Neb Atrovent Neb x 1, Nitroglycerin, 0.4 mg SL x 1, Lasix 80 mg IV IV initiated. 20 GA, in the left antecubital area. 09:51 Method Of Arrival: EMS: [facility] tw 09:51 Acuity: JERE 3 tw2 Historical: - Allergies: 10:06 No Known Allergies; tw2 - Home Meds: 10:06 spironolacton-hydrochlorothiaz 25-25 mg Oral tab 1 tab once daily (Last Dose: tw2 09/22/2018) [Active]; Lasix 20 mg Oral tab 1 tab 2 times per day (Last Dose: 09/22/2018) [Active]; - PMHx: 10:06 BLIND; Cirrhosis; Hypertension; tw2 - Immunization history:: Adult Immunizations unknown. - Social history:: Smoking status: Patient uses tobacco products, cigars. - Ebola Screening: : Patient denies travel to an Ebola-affected area in the 21 days before illness onset. Screenin:06 Abuse screen: Denies threats or abuse. Nutritional screening: No deficits noted. tw2 Tuberculosis screening: No symptoms or risk factors identified. Fall Risk Secondary diagnosis (15 points) impaired mobility, BLIND. Assessment: 10:02 General: Appears unkempt, Behavior is calm, cooperative, appropriate for age, Smells of tw2 body odor and animals. Pain: Complains of pain in abdomen. Neuro: Level of Consciousness is awake, alert, obeys commands, Oriented to person, place, situation. Cardiovascular: Heart tones S1 S2 Patient's skin is warm and dry. Respiratory: Airway is patent Respiratory effort is even, unlabored, Respiratory pattern is regular, symmetrical, Breath sounds with wheezes bilaterally. GI: Abdomen is round distended, gross distension noted of abdomen Bowel sounds present X 4 quads. Abd is rigid X 4 quads. Reports lower abdominal pain, upper abdominal pain. : No signs and/or symptoms were reported regarding the genitourinary system. EENT: No signs and/or symptoms were reported regarding the EENT system. Derm: Skin is fragile, is thin, with poor turgor Skin is dry. Musculoskeletal: Range of motion: intact in all extremities. 10:50 Reassessment: Patient appears in no apparent distress at this time. No changes from tw2 previously documented assessment. Patient and/or family updated on plan of care and expected duration. Pain level reassessed. 11:43 Reassessment: Patient appears in no apparent distress at this time. No changes from tw2 previously documented assessment. Patient and/or family updated on plan of care and expected duration. Pain level reassessed. 12:52 Reassessment: Patient appears in no apparent distress at this time. No changes from tw2 previously documented assessment. Patient and/or family updated on plan of care and expected duration. Pain level reassessed. Vital Signs: 10:01 BP 143 / 95; Pulse 111; Resp 22; Temp 97.9(O); Pulse Ox 88% on R/A; Pain 5/10; tw2 10:50 BP 149 / 98; Pulse 113; Resp 23; Pulse Ox 98% on R/A; tw2 11:43 BP 141 / 89; Pulse 111; Resp 20; Pulse Ox 98% on 2 lpm NC; tw2 12:51 BP 142 / 97; Pulse 107; Resp 21; Pulse Ox 97% on 2 lpm NC; tw2 13:36 BP 152 / 97; Pulse 112; Resp 20; Pulse Ox 97% on 2 lpm NC; tw2 10:01 pt placed on 2 L nc at this time, will continue to monitor tw2 ED Course: 09:51 Placed in gown. Bed in low position. Side rails up X2. electronic device monitor on. Pulse ox on. tw2 NIBP on. Warm blanket given. 09:56 Patient arrived in ED. 09:57 Sandip Motta PA is PHCP. [facility] 09:57 Rohit Mclean MD is Attending Physician. [facility] 09:57 Linda Burgess, RN is Primary Nurse. tw2 10:01 Triage completed. tw2 10:02 Arm band placed on. tw2 10:53 Urine Dipstick--Ancillary (enter results) Sent. mh5 10:59 Urine Dipstick--Ancillary (enter results) Sent. 5 11:23 CT completed. Patient tolerated procedure well. Patient moved to CT via stretcher. Patient moved back from CT. 11:26 Chest Abd Pelvis Wo Con In Process Unspecified. EDMS 11:57 Luis Guzman DO is Hospitalizing Provider. [facility] 12:52 No provider procedures requiring assistance completed. Maintain EMS IV. Dressing tw2 intact. Good blood return noted. Site clean \T\ dry. Gauge \T\ site: 20 g LEFT AC. Patient admitted, IV remains in place. 13:06 Awaiting: attempted to call report at this time, was told DERIC Donald needed a few more tw2 minutes and was not ready to receive report at this time. Administered Medications: No medications were administered Outcome: 11:58 Decision to Hospitalize by Provider. [facility] 13:35 Admitted to Med/surg accompanied by [facility], via stretcher, room 213, with oxygen, with tw2 chart, Report called to DERIC Donald 13:35 Condition: stable 13:35 Instructed on the need for admit. 13:38 Patient left the ED. tw2 Signatures: Dispatcher [employer] EDMS Noah Lepe, DERIC LEOS Sandip Motta PA PA jmm Jones, Susan Linda Burgess RN RN 2 Sayra Jesus [facility] Corrections: (The following items were deleted from the chart) 10:50 10:01 BP 143 / 95; Pulse 111bpm; Resp 22bpm; Pulse Ox 88% RA; Temp 97.9F Oral; Pain tw2 5/10; tw2
--- NOTE | 2018-11-10 12:37 | RAD REPORT ---
EXAM DESCRIPTION: Nathanielt Single View11/10/2018 12:31 pm CLINICAL HISTORY: Shortness of breath COMPARISON: August 2018 FINDINGS: Large right pleural effusion with right lung atelectasis. Left lung appears clear. Small left pleural effusion The heart is normal size
--- NOTE | 2018-11-10 12:46 | P.HP ---
Certification for Inpatient Patient admitted to: Inpatient With expected LOS: >2 Midnights Patient will require the following post-hospital care: Hospice Practitioner: I am a practitioner with admitting privileges, knowledge of patient current condition, hospital course, and medical plan of care. Services: Services provided to patient in accordance with Admission requirements found in Title 42 Section 412.3 of the Code of Federal Regulations Patient History Date of Service: 11/10/18 Primary Care Provider: None Reason for admission: Shortness of breath History of Present Illness: 53-year-old male presented to the emergency room with increasing shortness of breath. Patient with end-stage alcoholic liver cirrhosis, hypertension, COPD and blindness. Patient brought in by EMS due to increasing shortness of breath. Patient is homeless but lives with several people. Patient has required paracentesis in the past. Patient has increased ascites. He ran out of medication in August. Patient to be taking diuretic therapy. Patient is not been able to get his medication. In the ER patient evaluated. CT scan revealed massive ascites with large right pleural effusion. Patient required IV Lasix and nitro in the emergency room. He was satting 80% on room air. White count 7.0, hemoglobin 11.2. Platelet count of 234. Sodium 139, potassium 3.4, creatinine 1.49 with a GFR 50. Glucose 162. ALT 25, AST 54, total bilirubin 1.7. Ammonia level within normal range. Lipase unremarkable. Urinalysis unremarkable. Patient admitted for treatment. When I saw the patient the ER, he appeared stable with oxygen. Massive ascites noted. Patient did not appear septic. Patient continues to drink. He last drank alcohol about 7 days ago. Allergies No Known Allergies Allergy (Verified 06/12/18 13:38) Home medications list reviewed: No Home Medications: Doxycycline Hyclate 100 mg PO BID #14 capsule 08/26/18 Furosemide [Lasix] 20 mg PO DAILY #30 tablet 08/26/18 Spironolact/Hydrochlorothiazid [Spironolactone-Hctz 25-25 Tab] 1 each PO DAILY # 30 tablet 08/26/18 Thiamine HCl [Vitamin B-1*] 100 mg PO DAILY #30 tablet 08/26/18 - Past Medical/Surgical History Diabetic: No -: End-stage alcoholic liver cirrhosis -: Ascites with recurrent paracentesis -: Alcohol abuse -: Hypertension -: COPD -: Tobacco use -: Multiple paracentesis Psychosocial/ Personal History: Patient is homeless but lives with several people. He has no children. He is single. - Family History Family History: Reviewed- Non-Contributory - Family History Father Notes: back problems - Social History Smoking Status: Light Tobacco smoker (1-9 cigarettes/day) Counseled patient to stop smoking for: less than 10 minutes Smoking therapy provided: Yes Patient receptive to therapy: Yes Alcohol use: Yes CD- Drugs: No Caffeine use: No Place of Residence: Home Review of Systems General: Weakness, Malaise, As per HPI Eyes: Unremarkable ENT: Unremarkable Respiratory: Shortness of Breath, SOB with Excertion, As per HPI Cardiovascular: Edema, As per HPI Gastrointestinal: As per HPI Genitourinary: Unremarkable Musculoskeletal: Pedal edema, As per HPI Integumentary: Unremarkable Neurological: Unremarkable Lymphatics: Unremarkable Physical Examination - Physical Exam General: Alert, In no apparent distress, Oriented x3, Cooperative, Disheveled HEENT: Atraumatic, Normocephalic, Other (Dry mucous membranes) Neck: Supple, No Thyromegaly Respiratory: Diminished (Decreased to the right side), Expiratory wheezes ( Bilateral) Cardiovascular: Abnormal pulses (Sinus tachycardia) Gastrointestinal: Normal bowel sounds, Soft and benign, No tenderness, No masses , No rebound, No guarding, Ascites (Massive ascites noted.) Musculoskeletal: No erythema, No tenderness, No warmth Integumentary: Tenderness/swelling (1+ pitting edema to lower extremities bilateral) Neurological: Normal speech, Normal strength at 5/5 x4 extr, Normal tone, Normal affect - Studies Laboratory Data (last 24 hrs) 11/10/18 10:20: PT 14.5 H, INR 1.24 11/10/18 10:20: Creatinine 1.49 H 11/10/18 10:20: WBC 7.0, Hgb 11.2 L, Hct 32.3 L, Plt Count 234 11/10/18 10:20: Sodium 139, Potassium 3.4 L, BUN 16, Creatinine 1.46 H, Glucose 162 H, Total Bilirubin 1.7 H, AST 54 H, ALT 25, Alkaline Phosphatase 100, Lipase 112 Assessment and Plan - Plan Impression: Dyspnea secondary to massive ascites complicated with bilateral pleural effusion , right greater than left, with noted end-stage alcoholic cirrhosis with poor compliance with follow up and medication Hypertension COPD Tobacco and alcohol use Blindness Chronic renal disease, stage III Edema to the lower extremities secondary to cirrhosis Anemia of chronic disease Splenomegaly secondary to alcoholic cirrhosis Plan: Dyspnea secondary to massive ascites complicated with bilateral pleural effusion , right greater than left, with noted end-stage alcoholic cirrhosis with poor compliance with follow up and medication: Patient will be admitted for further evaluation and treatment. Will set up ultrasound-guided radiology assisted paracentesis to help with the ascites. GI to be consulted. Pulmonology also consulted to further assess his pleural effusions. Patient may require thoracentesis but will provide IV diuretic therapy for now. Will place on fluid restriction as well. Will continue to reassess. Will maintain sats above 90%. Respiratory to wean off oxygen. Will recheck chest x-ray again tomorrow. Will provide medication for COPD and elevated blood pressure. Advanced directives address in detail. Patient is DNR. Patient understands that his condition is terminal. Will need to consider hospice at discharge. Patient is agreeable as this may provide him some help with medications. Hypertension: Will provide IV medication as needed. COPD: Will start Brovana and COPD medication. Will maintain sats above 90%. Tobacco and alcohol use: Tobacco and alcohol cessation addressed in detail. His last alcohol was about 1 week ago. Blindness: Monitor closely. Chronic renal disease, stage III: Will monitor lab closely. Edema to the lower extremities secondary to cirrhosis: Continue with 1500 cc per day fluid restriction. Will monitor in and out closely. Will monitor daily weights. Will continue with IV Lasix and oral Aldactone. Anemia of chronic disease: Will monitor closely. Splenomegaly secondary to alcoholic cirrhosis: Monitor closely. Discharge Plan: Home Plan to discharge in: Greater than 2 days - Advance Directives Does patient have a Living Will: No Does patient have a Durable POA for Healthcare: No - Code Status/Comfort Care Code Status Assessed: Yes (Patient is DNR.) Time Spent Managing Pts Care (In Minutes): 55
[2018-11-10] MEDS ORDERED: IPRATROPIUM BROM 0.5MG/2.5ML NEB PRN (13:39)
[2018-11-10] MEDS ORDERED: ONDANSETRON 4 MG/2 ML VIAL IV PRN (13:39)
[2018-11-10] MEDS ORDERED: ACETAMINOPHEN 650MG/RECT SUPP PR PRN (13:39)
[2018-11-10] MEDS ORDERED: HYDRALAZINE HCL 20 MG/ML VIAL IV PRN (13:39)
[2018-11-10] MEDS ORDERED: ACETAMINOPHEN 500 MG TAB PO PRN (13:39)
[2018-11-10] MEDS ORDERED: ALBUTEROL 2.5 MG/3 ML NEB SOL NEB PRN ×2 (13:39→15:00)
[2018-11-10] MEDS: LACTULOSE 20 GM/30 ML UCUP PO SCH ×2 (14:00→21:17)
[2018-11-10] MEDS ORDERED: INFLUENZA VACCINE (for 3y+) 0.5 ML DOSE IMVAC ONE (15:00)
[2018-11-10 15:46] LABS: Urine Appearance CLEAR; Urine Bilirubin NEGATIVE (NEG); Urine Blood TRACE (NEG); Urine Color YELLOW; Urine Glucose NEGATIVE (NEG); Urine Protein NEGATIVE (NEG); Urine Specific Gravity <=1.005 (1.005-1.030); Urine Urobilinogen 0.2 mg/dL (0.2-1.0); Urine pH 5.5 (5.0-7.0)
[2018-11-10 15:58] LABS: Urine Microscopic Reflex ORDER UMIC
[2018-11-10] MEDS ORDERED: POTASSIUM CL SA 10 MEQ TAB PO ONE (16:00)
[2018-11-10 16:22] LABS: Urine Bacteria NONE SEEN /HPF (NONE SEEN); Urine Culture Reflex Order REFLEXED
[2018-11-10] MEDS: FUROSEMIDE 40 MG/4 ML VIAL IV SCH (16:33)
[2018-11-10] MEDS: ARFORMOTEROL TARTRATE 15 MCG/2 ML VIAL.NEB NEB SCH (20:00)
[2018-11-10] MEDS: SPIRONOLACTONE 25 MG TABLET PO SCH (21:15)
[2018-11-10] MEDS: FAMOTIDINE 20 MG/2 ML VIAL IV SCH (21:17)
[2018-11-11 06:29] LABS: Absolute Monocytes 0.9 K/uL (0.1-1.3); Absolute Neutrophil 5.6 K/uL (1.8-8.0); Basophils % 1.4 % (0-1.3); Eosinophils % 2.2 % (0-4.4); Hematocrit 31.7 % (39.6-49.0); Lymphocytes % 22.6 % (15.3-44.8); MPV 7.3 fL (7.6-11.3); Monocytes % 9.8 % (3.3-12.3); RBC Red Blood Cell Count 3.35 M/uL (4.33-5.43)
[2018-11-11 06:37] LABS: Albumin 2.1 g/dL (3.4-5.0); Bilirubin Total 1.5 mg/dL (0.2-1.0); Magnesium 1.8 mg/dL (1.8-2.4); Potassium 3.3 mmol/L (3.5-5.1); Protein, Total 7.7 g/dL (6.4-8.2)
[2018-11-11] MEDS ORDERED: MAGNESIUM SULFATE 1 gm IVPB 1 GM/100 ML BAG IV ONE (08:00)
[2018-11-11] MEDS: FAMOTIDINE 20 MG/2 ML VIAL IV SCH ×2 (08:11→21:25)
[2018-11-11] MEDS: KCL 20 MEQ/100 mL IVPB 20 MEQ/100 ML BAG IV SCH ×2 (08:11→11:55)
[2018-11-11] MEDS: FUROSEMIDE 40 MG/4 ML VIAL IV SCH ×2 (08:11→17:48)
--- NOTE | 2018-11-11 08:56 | RAD REPORT ---
EXAM DESCRIPTION: Nathanielt Single View11/11/2018 6:45 am CLINICAL HISTORY: Pleural effusion COMPARISON: November 10, 2018 FINDINGS: No change in the large right pleural effusion with right atelectasis Small left pleural effusion The heart is normal size
[2018-11-11] MEDS: FOLIC ACID 1 MG TABLET PO SCH (09:00)
[2018-11-11] MEDS: ARFORMOTEROL TARTRATE 15 MCG/2 ML VIAL.NEB NEB SCH ×2 (09:00→20:24)
[2018-11-11] MEDS: THIAMINE HCL 100 MG TABLET PO SCH (09:00)
[2018-11-11] MEDS: ENOXAPARIN 30 MG/0.3 ML SQ SCH (09:00)
[2018-11-11] MEDS: SPIRONOLACTONE 25 MG TABLET PO SCH ×2 (09:00→21:23)
[2018-11-11] MEDS: LACTULOSE 20 GM/30 ML UCUP PO SCH ×3 (09:00→21:25)
[2018-11-11 11:21] LABS: Appearance CLEAR (CLEAR); Body Fluid Source PERITONEAL; Body Fluid WBC 145 /mm^3; Color of fluid Yellow (COLORLESS)
--- NOTE | 2018-11-11 11:33 | ECHO ---
HEIGHT: 5 ft 11 in WEIGHT: 195 lb 12.8 oz DATE OF STUDY: 11/11/[address]: Luis Guzman DO 2-DIMENSIONAL: YES M.MODE: YES DOPPLER: YES COLOR FLOW: YES TDS: NO PORTABLE: NO DEFINITY: NO BUBBLE STUDY: NO DIAGNOSIS: ASCITES, RIGHT PLEURAL EFFUSION, SUSPECT CONGESTIVE HEART FAILURE CARDIAC HISTORY: CATHERIZATION: NO SURGERY: NO PROSTHETIC VALVE: NO PACEMAKER: NO MEASUREMENTS (cm) DIASTOLIC (NORMALS) SYSTOLIC (NORMALS) IVSd 0.9 (0.6-1.2) LA Diam 2.3 (1.9-4.0) LVEF 58% LVIDd 3.0 (3.5-5.7) LVIDs 2.1 (2.0-3.5) %FS 29% LVPWd 1.1 (0.6-1.2) Ao Diam 2.4 (2.0-3.7) 2 DIMENSIONAL ASSESSMENT: RIGHT ATRIUM: NORMAL LEFT ATRIUM: NORMAL RIGHT VENTRICLE: NORMAL LEFT VENTRICLE: NORMAL TRICUSPID VALVE: NORMAL MITRAL VALVE: NORMAL PULMONIC VALVE: NORMAL AORTIC VALVE: NORMAL PERICARDIAL EFFUSION: NONE AORTIC ROOT: NORMAL LEFT VENTRICULAR WALL MOTION: NORMAL DOPPLER/COLOR FLOW: PHYSIOLOGIC TRICUSPID REGURGITATION. NORMAL RIGHT VENTRICULAR SYSTOLIC PRESSURE. COMMENTS: NORMAL 2D ECHOCARDIOGRAM WITH DOPPLER. TECHNOLOGIST: Oliver AGUILA
--- NOTE | 2018-11-11 11:47 | RAD REPORT ---
EXAM DESCRIPTION: US - Paracentesis Proc Guidance - 11/11/2018 10:09 am CLINICAL HISTORY: Liver disease with ascites FINDINGS: The risks, benefits and alternatives to the procedure were explained to the patient and in formed consent obtained. The skin and subcutaneous tissues were anesthetized with Lidocaine. Under sonographic guidance an 8 F rench catheter was placed into the right lower quadrant. 13 liters of yellow fluid removed. Fluid was sent to the lab. The patient experienced no immediate complication. IMPRESSION: Paracentesis
[2018-11-11] MEDS ORDERED: ALBUMIN HUMAN 25% 100 ML IV ONE (12:15)
--- NOTE | 2018-11-11 16:07 | P.PN ---
Subjective Date of Service: 11/11/18 Primary Care Provider: None Chief Complaint: Shortness of breath Subjective: Other (Patient feels improved. Patient to have paracentesis today.) Physical Examination - Vital Signs Temperature: 97.5 F Blood Pressure: 132/76 Pulse: 93 Respirations: 20 Pulse Ox (%): 99 - Physical Exam General: Alert, In no apparent distress, Oriented x3, Cooperative HEENT: Atraumatic Neck: Supple Respiratory: Other (Better air movement bilateral still decreased to the right side) Cardiovascular: Normal pulses, Regular rate/rhythm Gastrointestinal: Normal bowel sounds, Soft and benign, Non-distended, Ascites Musculoskeletal: No tenderness, No warmth Integumentary: No warmth, No cyanosis Neurological: Normal speech, Normal strength at 5/5 x4 extr, Normal tone, Normal affect - Studies Medications List Reviewed: Yes Assessment & Plan Discharge Plan: Home Plan to discharge in: 24 Hours Physician Review Additional Text: Impression: Dyspnea secondary to massive ascites complicated with bilateral pleural effusion , right greater than left, with noted end-stage alcoholic cirrhosis with poor compliance with follow up and medication Hypertension COPD Tobacco and alcohol use Blindness Chronic renal disease, stage III Edema to the lower extremities secondary to cirrhosis Anemia of chronic disease Splenomegaly secondary to alcoholic cirrhosis Plan: Dyspnea secondary to massive ascites complicated with bilateral pleural effusion , right greater than left, with noted end-stage alcoholic cirrhosis with poor compliance with follow up and medication: Patient to have paracentesis today. Will provide albumin IV afterwards. Case Re discuss with him in detail. Patient remains DNR. Patient has signed [id number] DNR. Hospice did come by and discuss with the patient. Patient willing to start hospice. Will need to discuss with hospice as patient still wants to continue with paracentesis as an outpatient. Will check to see if this can be done with the help of hospice. Will continue monitor closely. Possible discharge tomorrow if hospice can be set up. Hypertension: Will adjust medication. COPD: Continue with Brovana and COPD medication. Will maintain sats above 90%. Tobacco and alcohol use: Tobacco and alcohol cessation addressed in detail. His last alcohol was about 1 week ago. Blindness: Monitor closely. Chronic renal disease, stage III: Will monitor lab closely. Edema to the lower extremities secondary to cirrhosis: Continue with 1500 cc per day fluid restriction. Will monitor in and out closely. Will monitor daily weights. Will continue with IV Lasix and oral Aldactone. Will adjust medication accordingly. Anemia of chronic disease: Will monitor closely. Splenomegaly secondary to alcoholic cirrhosis: Monitor closely. Time Spent Managing Pts Care (In Minutes): 55
[2018-11-11] MEDS ORDERED: POTASSIUM CL SA 10 MEQ TAB PO ONE (20:00)
[2018-11-12 06:19] LABS: Albumin 3.4 g/dL (3.4-5.0); Bilirubin Total 2.4 mg/dL (0.2-1.0); Magnesium 1.7 mg/dL (1.8-2.4); Potassium 3.5 mmol/L (3.5-5.1); Protein, Total 7.2 g/dL (6.4-8.2)
[2018-11-12 06:21] LABS: Absolute Lymphocytes (CBC) 1.9 K/uL (0.7-4.9); Absolute Monocytes 0.8 K/uL (0.1-1.3); Absolute Neutrophil 5.5 K/uL (1.8-8.0); Basophils % 0.9 % (0-1.3); Eosinophils % 1.7 % (0-4.4); Hematocrit 30.3 % (39.6-49.0); Lymphocytes % 22.1 % (15.3-44.8); MPV 7.4 fL (7.6-11.3); Monocytes % 9.9 % (3.3-12.3); RBC Red Blood Cell Count 3.21 M/uL (4.33-5.43)
[2018-11-12] MEDS ORDERED: MAGNESIUM SULFATE 1 gm IVPB 1 GM/100 ML BAG IV ONE (06:53)
--- NOTE | 2018-11-12 08:20 | RAD REPORT ---
EXAM DESCRIPTION: RAD - Chest Pa And Lat (2 Views) - 11/12/2018 6:56 am CLINICAL HISTORY: Follow up pleural effusion Chest pain. COMPARISON: Chest Single View dated 11/11/2018; Chest Single View dated 11/10/2018; Chest Single View dated 08/25/2018; Chest Single View dated 06/12/2018; Paracentesis Proc Guidance dated 11/11/2018 FINDINGS: Large right pleural effusion is noted, reduced in size compared to comparative study. Left lung appears grossly clear. The heart is normal in size. No displaced fractures. IMPRESSION: [id number] reduction in size of large right pleural effusion.
[2018-11-12] MEDS: ARFORMOTEROL TARTRATE 15 MCG/2 ML VIAL.NEB NEB SCH (08:22)
[2018-11-12] MEDS ORDERED: POTASSIUM CL SA 10 MEQ TAB PO ONE (09:00)
[2018-11-12] MEDS: SPIRONOLACTONE 25 MG TABLET PO SCH ×2 (09:01→20:52)
[2018-11-12] MEDS: LACTULOSE 20 GM/30 ML UCUP PO SCH ×3 (09:02→20:53)
[2018-11-12] MEDS: FOLIC ACID 1 MG TABLET PO SCH (09:04)
[2018-11-12] MEDS: THIAMINE HCL 100 MG TABLET PO SCH (09:05)
[2018-11-12] MEDS: FUROSEMIDE 40 MG/4 ML VIAL IV SCH (09:08)
[2018-11-12] MEDS: FAMOTIDINE 20 MG/2 ML VIAL IV SCH (09:16)
[2018-11-12] MEDS: ENOXAPARIN 30 MG/0.3 ML SQ SCH (09:22)
--- NOTE | 2018-11-12 11:47 | P.PN ---
Subjective Date of Service: 11/12/18 Primary Care Provider: None Chief Complaint: Shortness of breath Subjective: Improving (Patient continues to improve. Patient off oxygen.) Physical Examination - Vital Signs Temperature: 99.2 F Blood Pressure: 110/74 Pulse: 110 Respirations: 22 Pulse Ox (%): 92 - Physical Exam General: Alert, In no apparent distress, Oriented x3, Cooperative HEENT: Atraumatic Neck: Supple Respiratory: Other (Improved air movement bilateral slightly decreased to the right side) Cardiovascular: Abnormal pulses (Sinus tachycardia) Gastrointestinal: Normal bowel sounds, Soft and benign, No tenderness, No masses , No rebound, No guarding, Ascites (Improved ascites) Musculoskeletal: No erythema, No tenderness, No warmth Integumentary: No erythema, No warmth, No cyanosis Neurological: Normal speech, Normal strength at 5/5 x4 extr, Normal tone, Normal affect - Studies Medications List Reviewed: Yes Assessment & Plan Discharge Plan: Home (With hospice) Plan to discharge in: 24 Hours Physician Review Additional Text: Impression: Dyspnea secondary to massive ascites complicated with bilateral pleural effusion , right greater than left, with noted end-stage alcoholic cirrhosis with poor compliance with follow up and medication Hypertension COPD Tobacco and alcohol use Blindness Chronic renal disease, stage III Edema to the lower extremities secondary to cirrhosis Anemia of chronic disease Splenomegaly secondary to alcoholic cirrhosis Plan: Dyspnea secondary to massive ascites complicated with bilateral pleural effusion , right greater than left, with noted end-stage alcoholic cirrhosis with poor compliance with follow up and medication, status post paracentesis: Patient did well yesterday after paracentesis. Chest x-ray shows improvement of pleural effusion. Patient will need continue with fluid restriction and diuretic therapy. Patient remains DNR. Patient has significantly improved. Patient accepted to hospice. Hospice will allow patient to get paracentesis done in the ER every month. Patient agreeable. Will check to see if hospice can be arranged today if so patient can be discharged. Hypertension: Continue with medication. COPD: Continue with Brovana and COPD medication. Will maintain sats above 90%. Tobacco and alcohol use: Tobacco and alcohol cessation addressed in detail. His last alcohol was about 1 week ago. Blindness: Monitor closely. Chronic renal disease, stage III: Will monitor lab closely. Edema to the lower extremities secondary to cirrhosis: Continue with 1500 cc per day fluid restriction. Will monitor in and out closely. Will monitor daily weights. Transition to oral medication. Anemia of chronic disease: Will monitor closely. Splenomegaly secondary to alcoholic cirrhosis: Monitor closely. Time Spent Managing Pts Care (In Minutes): 55
[2018-11-12] MEDS ORDERED: ALBUTEROL INHALER 60 PUFF/8 GM IH PRN (12:27)
[2018-11-12] MEDS: FUROSEMIDE 40 MG TABLET PO SCH (17:12)
[2018-11-12] MEDS: FAMOTIDINE 20 MG TAB PO SCH (20:53)
[2018-11-12] MEDS: DULERA 200/5 (MOMETASONE/FORMOTEROL) INHALER IH SCH (20:53)
[2018-11-13 06:01] LABS: Albumin 2.7 g/dL (3.4-5.0); Bilirubin Total 1.9 mg/dL (0.2-1.0); Magnesium 1.9 mg/dL (1.8-2.4); Potassium 3.4 mmol/L (3.5-5.1); Protein, Total 6.9 g/dL (6.4-8.2)
[2018-11-13 06:05] LABS: Absolute Lymphocytes (CBC) 1.9 K/uL (0.7-4.9); Absolute Neutrophil 5.7 K/uL (1.8-8.0); Eosinophils % 3.2 % (0-4.4); Hematocrit 31.2 % (39.6-49.0); Lymphocytes % 21.4 % (15.3-44.8); MPV 7.5 fL (7.6-11.3); Monocytes % 11.3 % (3.3-12.3); RBC Red Blood Cell Count 3.28 M/uL (4.33-5.43)
[2018-11-13] MEDS ORDERED: POTASSIUM 25 MEQ EFFERV TAB PO ONE (06:20)
[2018-11-13] MEDS: DULERA 200/5 (MOMETASONE/FORMOTEROL) INHALER IH SCH (09:39)
[2018-11-13] MEDS: SPIRONOLACTONE 25 MG TABLET PO SCH (09:39)
[2018-11-13] MEDS: LACTULOSE 20 GM/30 ML UCUP PO SCH ×2 (09:39→14:39)
[2018-11-13] MEDS: ENOXAPARIN 30 MG/0.3 ML SQ SCH (09:40)
[2018-11-13] MEDS: FUROSEMIDE 40 MG TABLET PO SCH ×2 (09:40→16:34)
[2018-11-13] MEDS: THIAMINE HCL 100 MG TABLET PO SCH (09:40)
[2018-11-13] MEDS: FAMOTIDINE 20 MG TAB PO SCH (09:40)
[2018-11-13] MEDS: FOLIC ACID 1 MG TABLET PO SCH (09:40)
--- NOTE | 2018-11-13 11:38 | P.DS ---
Admission Date: 11/10/18 Discharge Date: 11/13/18 Primary Care Provider: None Disposition: HOSPICE-HOME Discharge Condition: GOOD Reason for Admission: Shortness of breath Consultations: Pulmonary-Dr. Lazar GI-Dr. Mendosa Procedures: CT scan: COMPARISON: CT May 2019 TECHNIQUE: Computed axial tomography of the chest, abdomen and pelvis was obtained. Oral contrast was given. IV contrast was not requested. All CT scans are performed using dose optimization technique as appropriate and may include automated exposure control or mA/KV adjustment according to patient size. FINDINGS: The evaluation of mediastinum, clyde, vessels and solid organs is limited secondary to the lack of IV contrast administration Very large right pleural effusion with right basilar atelectasis Small to moderate left pleural effusion Massive ascites Cirrhotic liver. Mild splenomegaly Pancreas and adrenals appear unremarkable. Nonobstructing bilateral renal calculi No evidence of diverticulitis Cholelithiasis without evidence cholecystitis IMPRESSION: Very large right pleural effusion Cirrhosis with massive ascites Echocardiogram: EF 58% LEFT VENTRICULAR WALL MOTION: NORMAL DOPPLER/COLOR FLOW: PHYSIOLOGIC TRICUSPID REGURGITATION. NORMAL RIGHT VENTRICULAR SYSTOLIC PRESSURE. COMMENTS: NORMAL 2D ECHOCARDIOGRAM WITH DOPPLER. Paracentesis: FINDINGS: The risks, benefits and alternatives to the procedure were explained to the patient and informed consent obtained. The skin and subcutaneous tissues were anesthetized with Lidocaine. Under sonographic guidance an 8 British catheter was placed into the right lower quadrant. 13 liters of yellow fluid removed. Fluid was sent to the lab. The patient experienced no immediate complication. IMPRESSION: Paracentesis Follow up chest x-ray: COMPARISON: Chest Single View dated 11/11/2018; Chest Single View dated 2018; Chest Single View dated 08/25/2018; Chest Single View dated 06/12/2018; Paracentesis Proc Guidance dated 11/11/2018 FINDINGS: Large right pleural effusion is noted, reduced in size compared to comparative study. Left lung appears grossly clear. The heart is normal in size. No displaced fractures. IMPRESSION: Rrtf-in-[id number] reduction in size of large right pleural effusion. Medical problem list: Dyspnea secondary to massive ascites complicated with bilateral pleural effusion , right greater than left, with noted end-stage alcoholic cirrhosis with poor compliance with follow up and medication status post paracentesis with removal of 12 L Hypertension COPD Tobacco and alcohol use Blindness Chronic renal disease, stage III Edema to the lower extremities secondary to cirrhosis Anemia of chronic disease Splenomegaly secondary to alcoholic cirrhosis Brief History of Present Illness: 53-year-old male presented to the emergency room with increasing shortness of breath. Patient with end-stage alcoholic liver cirrhosis, hypertension, COPD and blindness. Patient brought in by EMS due to increasing shortness of breath. Patient is homeless but lives with several people. Patient has required paracentesis in the past. Patient has increased ascites. He ran out of medication in August. Patient to be taking diuretic therapy. Patient is not been able to get his medication. In the ER patient evaluated. CT scan revealed massive ascites with large right pleural effusion. Patient required IV Lasix and nitro in the emergency room. He was satting 80% on room air. White count 7.0, hemoglobin 11.2. Platelet count of 234. Sodium 139, potassium 3.4, creatinine 1.49 with a GFR 50. Glucose 162. ALT 25, AST 54, total bilirubin 1.7. Ammonia level within normal range. Lipase unremarkable. Urinalysis unremarkable. Patient admitted for treatment. When I saw the patient the ER, he appeared stable with oxygen. Massive ascites noted. Patient did not appear septic. Patient continues to drink. He last drank alcohol about 7 days ago. Hospital Course: Patient presented with shortness of breath secondary to massive ascites complicated with bilateral pleural effusions right greater than left. Patient with end-stage alcoholic cirrhosis with poor compliance with follow up and medication. The patient was admitted for further evaluation and treatment. During the course of his stay patient had a paracentesis with removal of 12 L. Patient improved with fluid restriction and diuretic therapy as well. Advanced directives address in detail. Patient wishes to be DNR. [id number] DNR signed. Hospice was arranged for the patient. Patient agreed. Patient will go home with hospice. Hospice will help arrange for monthly paracentesis. At discharge patient will continue with lactulose 3 times a day, Aldactone 25 mg 1 pill twice daily, Lasix 40 mg 1 pill twice daily, thiamine 100 mg daily, and folic acid 1 mg daily. The patient plans to quit alcohol use. This will need to be monitored by hospice. Further adjustment in medication can be done by hospice. Patient with bilateral pleural effusion. Right greater than left. This was evaluated by pulmonology. Pulmonology recommended not to do thoracentesis at this time. Repeat x-ray shows improvement. Patient will continue with diuretic therapy as above. Patient with GERD. Patient will continue with Pepcid 20 mg 1 pill twice daily. Patient with hypertension. Patient started on Toprol 12.5 mg daily. Recommend to maintain blood pressures less 150/80. Further adjustment can be done by hospice. Patient with chronic renal disease, stage III. This was monitored closely. No intervention was required. Patient with COPD. Prior tobacco use noted. At discharge patient will continue with Dulera 2 puffs twice daily and Pro air 2 puffs 3 times a day as needed for shortness of breath. Hospice will provide oxygen to maintain sats above 90%. Patient with anemia of chronic disease with splenomegaly secondary to alcoholic cirrhosis. This can be monitored by hospice. Vital Signs/Physical Exam: Temp Pulse Resp BP Pulse Ox 97.9 F 107 H 16 125/78 96 11/13/18 08:00 11/13/18 08:00 11/13/18 08:00 11/13/18 08:00 11/13/18 08:00 General: Alert, In no apparent distress, Oriented x3, Cooperative HEENT: Atraumatic Neck: Supple Respiratory: Other (Slightly diminished to the bases) Cardiovascular: Normal pulses, Regular rate/rhythm Gastrointestinal: Normal bowel sounds, Soft and benign, Non-distended, No masses , No rebound, No guarding, Ascites Musculoskeletal: No erythema, No tenderness, No warmth Integumentary: No tenderness/swelling, No erythema, No warmth, No cyanosis Neurological: Normal speech, Normal strength at 5/5 x4 extr, Normal tone, Normal affect Laboratory Data at Discharge: WBC 9.1 K/uL (4.3-10.9) 11/13/18 05:31 Hgb 10.8 g/dL (13.6-17.9) L 11/13/18 05:31 Hct 31.2 % (39.6-49.0) L 11/13/18 05:31 Plt Count 212 K/uL (152-406) 11/13/18 05:31 PT 14.5 SECONDS (9.5-12.5) H 11/10/18 10:20 INR 1.24 11/10/18 10:20 Sodium 138 mmol/L (136-145) 11/13/18 05:31 Potassium 3.4 mmol/L (3.5-5.1) L 11/13/18 05:31 BUN 13 mg/dL (7-18) 11/13/18 05:31 Creatinine 1.45 mg/dL (0.55-1.3) H 11/13/18 05:31 Glucose 104 mg/dL (74-106) 11/13/18 05:31 Magnesium 1.9 mg/dL (1.8-2.4) 11/13/18 05:31 Total Bilirubin 1.9 mg/dL (0.2-1.0) H 11/13/18 05:31 AST 27 U/L (15-37) 11/13/18 05:31 ALT 15 U/L (12-78) 11/13/18 05:31 Alkaline Phosphatase 73 U/L (45-117) 11/13/18 05:31 Lipase 112 U/L (73-393) 11/10/18 10:20 Home Medications: Albuterol Inhaler [Ventolin Inhaler*] 2 puff IH TID PRN #1 hfa.aer.ad 11/13/18 Famotidine [Pepcid*] 20 mg PO BID #60 tab 11/13/18 Folic Acid 1 mg PO DAILY #30 tablet 11/13/18 Furosemide [Lasix*] 40 mg PO BIDL #60 tab 11/13/18 Lactulose [Cephulac*] 30 ml PO TID #1 bottle 11/13/18 Metoprolol Tartrate [Lopressor*] 12.5 mg PO DAILY #30 tab 11/13/18 Mometasone/Formoterol [Dulera 200 Mcg/5 Mcg Inhaler] 2 puff IH BID #1 inhaler Spironolactone [Aldactone*] 25 mg PO BID #60 tab 11/13/18 Thiamine HCl [Vitamin B-1*] 100 mg PO DAILY #30 tablet 11/13/18 New Medications: Albuterol Inhaler [Ventolin Inhaler*] 2 puff IH TID PRN #1 hfa.aer.ad PRN Reason: Shortness Of Breath Famotidine [Pepcid*] 20 mg PO BID #60 tab Folic Acid 1 mg PO DAILY #30 tablet Furosemide [Lasix*] 40 mg PO BIDL #60 tab Lactulose [Cephulac*] 30 ml PO TID #1 bottle Metoprolol Tartrate [Lopressor*] 12.5 mg PO DAILY #30 tab Mometasone/Formoterol [Dulera 200 Mcg/5 Mcg Inhaler] 2 puff IH BID #1 inhaler Spironolactone [Aldactone*] 25 mg PO BID #60 tab Thiamine HCl [Vitamin B-1*] 100 mg PO DAILY #30 tablet Patient Discharge Instructions: 1. Patient will go home with hospice. 2. Patient presented with shortness of breath secondary to massive ascites complicated with bilateral pleural effusions right greater than left. Patient with end-stage alcoholic cirrhosis with poor compliance with follow up and medication. The patient was admitted for further evaluation and treatment. During the course of his stay patient had a paracentesis with removal of 12 L. Patient improved with fluid restriction and diuretic therapy as well. Advanced directives address in detail. Patient wishes to be DNR. [id number] DNR signed. Hospice was arranged for the patient. Patient agreed. Patient will go home with hospice. Hospice will help arrange for monthly paracentesis. At discharge patient will continue with lactulose 3 times a day, Aldactone 25 mg 1 pill twice daily, Lasix 40 mg 1 pill twice daily, thiamine 100 mg daily, and folic acid 1 mg daily. The patient plans to quit alcohol use. This will need to be monitored by hospice. Further adjustment in medication can be done by hospice. 3. Patient with bilateral pleural effusion. Right greater than left. This was evaluated by pulmonology. Pulmonology recommended not to do thoracentesis at this time. Repeat x-ray shows improvement. Patient will continue with diuretic therapy as above. 4. Patient with GERD. Patient will continue with Pepcid 20 mg 1 pill twice daily. 5. Patient with hypertension. Patient started on Toprol 12.5 mg daily. Recommend to maintain blood pressures less 150/80. Further adjustment can be done by hospice. 6. Patient with chronic renal disease, stage III. This was monitored closely. No intervention was required. 7. Patient with COPD. Prior tobacco use noted. At discharge patient will continue with Dulera 2 puffs twice daily and Pro air 2 puffs 3 times a day as needed for shortness of breath. Hospice will provide oxygen to maintain sats above 90%. 8. Patient with anemia of chronic disease with splenomegaly secondary to alcoholic cirrhosis. This can be monitored by hospice. Diet: AHA Activity: Fall precautions Time spent managing pt's care (in minutes): 55
--- NOTE | 2018-11-13 11:46 | P.CNS ---
Date of Consult: 11/11/18 Primary Care Provider: None Chief Complaint: Pleural effusion and ascites History of Present Illness: Patient is 53 years of age a home homeless admitted with shortness of breath progressive abdominal distension noncompliant with his medication has been taking his diuretics denies any fever or chills patient has end-stage liver disease with ascites and has had paracentesis done before Allergies No Known Allergies Allergy (Verified 06/12/18 13:38) Home Medications: Albuterol Inhaler [Ventolin Inhaler*] 2 puff IH TID PRN #1 hfa.aer.ad 11/13/18 Famotidine [Pepcid*] 20 mg PO BID #60 tab 11/13/18 Folic Acid 1 mg PO DAILY #30 tablet 11/13/18 Furosemide [Lasix*] 40 mg PO BIDL #60 tab 11/13/18 Lactulose [Cephulac*] 30 ml PO TID #1 bottle 11/13/18 Metoprolol Tartrate [Lopressor*] 12.5 mg PO DAILY #30 tab 11/13/18 Mometasone/Formoterol [Dulera 200 Mcg/5 Mcg Inhaler] 2 puff IH BID #1 inhaler Spironolactone [Aldactone*] 25 mg PO BID #60 tab 11/13/18 Thiamine HCl [Vitamin B-1*] 100 mg PO DAILY #30 tablet 11/13/18 - Past Medical/Surgical History Diabetic: No -: End-stage alcoholic liver cirrhosis -: Ascites with recurrent paracentesis -: Alcohol abuse -: Hypertension -: COPD -: Tobacco use -: Multiple paracentesis Psychosocial/ Personal History: Patient is homeless but lives with several people. He has no children. He is single. - Family History Father Notes: back problems - Social History Smoking Status: Current every day smoker Alcohol use: No CD- Drugs: No Caffeine use: Yes Place of Residence: Home Review of Systems General: Weakness Respiratory: Cough, Shortness of Breath Cardiovascular: Orthopnea, Edema Physical Examination Temp Pulse Resp BP Pulse Ox 97.9 F 107 H 16 125/78 96 11/13/18 08:00 11/13/18 08:00 11/13/18 08:00 11/13/18 08:00 11/13/18 08:00 General: Alert, Oriented x3, Mild distress Respiratory: Diminished Cardiovascular: Edema Gastrointestinal: Distended, Ascites - Problems (1) Pleural effusion Onset Date: 06/17/18 Current Visit: No Status: Acute Plan: Patient is 53 years of age admitted with ascites and pleural effusion he has end -stage liver disease secondary to alcoholic cirrhosis patient is mildly anemic has abnormal LFTs he has been scheduled for a large volume the oxygenation is satisfactory a thoracentesis right now as not indicated unless he becomes very symptomatic patient is to resume his diuretic prognosis very poor consider hospice care
== END 2018-11-13 17:00 | disposition hospice, home (50) | DRG 433 ==
LOC: ER 09:54 → ERHOLD 12:26 → 2ND 13:34
PROVIDERS: ADMIT Family Medicine; ATTEND Family Medicine
PROC: 0W9G3ZX Drainage of Peritoneal Cavity, Percutaneous Approach, Diagnostic (ICD-10-PCS; principal; 2018-11-11)
DX: K70.31 Alcoholic cirrhosis of liver with ascites (principal); J91.8 Pleural effusion in other conditions classified elsewhere; J44.9 Chronic obstructive pulmonary disease, unspecified; I12.9 Hypertensive chronic kidney disease with stage 1 through stage 4 chronic kidney disease, or unspecified chronic kidney disease; N18.3 Chronic kidney disease, stage 3 (moderate); R60.9 Edema, unspecified; D63.8 Anemia in other chronic diseases classified elsewhere; D73.2 Chronic congestive splenomegaly; Z91.14 Patient's other noncompliance with medication regimen; Z66 Do not resuscitate; Z51.5 Encounter for palliative care; K21.9 Gastro-esophageal reflux disease without esophagitis; F17.210 Nicotine dependence, cigarettes, uncomplicated; F10.10 Alcohol abuse, uncomplicated; H54.7 Unspecified visual loss
CPT/HCPCS: 36415; 49083; 71045; 71046; 71250; 74176; 80048; 80053; 80076; 81003; 81015; 82140; 83615; 83690; 83735; 84132; 84484; 85025; 85610; 87070; 87086; 87088; 88108; 88305; 89050; 93306; 94640; 99285; G0008; J1650; J1940; J3475; J7605; J7606; P9047; Q2035